=== PATIENT | male | born 1975 | race Caucasian/White ===

== ENCOUNTER 2020-11-03 16:57 | Outpatient (REF) | payer OTHER, SELFPAY ==
--- NOTE | 2020-11-03 17:18 | XR_ITS ---
EXAMINATION: XR CHEST CLINICAL INFORMATION: Pleural effusion COMPARISON: None TECHNIQUE: 2 views of the chest were obtained. FINDINGS: The cardiomediastinal silhouette is normal. There is a moderate-sized loculated right pleural effusion. There is adjacent right basilar atelectasis. There are no focal areas of consolidation in the left lung. XR/XR chest 2V IMPRESSION: Moderate loculated right pleural effusion.
[2020-11-03 17:59] LABS: MANUAL DIFF FLAG NO
[2020-11-03 18:01] LABS: Basophils Absolute Auto 0.1 X10*3/uL (0.0-0.2); Basophils Percent Auto 0.3 % (0-2); Eosinophils Percent Auto 0.1 % (0-4); Hematocrit 37.8 % (42-52); Hemoglobin 11.9 g/dl (14.0-18.0); Imm Gran Abs Auto 0.07 X10*3/uL (0.00-0.03); Imm Gran Pct Auto 0.4 % (0.0-0.4); Lymphocytes Absolute Auto 1.9 X10*3/uL (1.2-4.9); Lymphocytes Percent Auto 11.6 % (20-40); Mean Corpuscular HGB Conc 31.5 g/dl (31.0-36.0); Mean Corpuscular Hemoglobin 27.7 pg (27.0-33.0); Mean Corpuscular Volume 88.1 fL (80-98); Mean Platelet Volume 10.4 fL (9.4-12.4); Monocytes Absolute Auto 1.2 X10*3/uL (0.1-1.2); Monocytes Percent Auto 7.4 % (2-11); Neutrophils Absolute Auto 13.2 X10*3/uL (2.0-8.3); Neutrophils Percent Auto 80.2 % (45-73); Platelet Count 464 X10*3/uL (160-400); Red Blood Count 4.29 X10*6/uL (4.60-5.80); Red Cell Distribution Width 13.7 % (11.0-16.0); White Blood Count 16.4 X10*3/uL (4.8-10.8)
== END 2020-11-03 16:58 | disposition home or self-care (01) ==
LOC: HO.LAB 16:57
PROVIDERS: PCP Internal Medicine; Visit Provider Internal Medicine
DX: J90 Pleural effusion, not elsewhere classified (principal); J18.9 Pneumonia, unspecified organism; F11.10 Opioid abuse, uncomplicated
CPT/HCPCS: 36415; 71046; 85025

== ENCOUNTER 2020-11-09 13:56 | Emergency (ER) | payer OTHER, SELFPAY ==
[2020-11-09 15:06] VITALS: BP 135/80; PULSE 80; RESP 16; TEMP 36.6; O2SAT 100; BMI 23.9
--- NOTE | 2020-11-09 15:07 | XR_ITS ---
EXAMINATION: XR CHEST CLINICAL INFORMATION: History of pleural effusion. COMPARISON: None TECHNIQUE: 2 views of the chest were obtained. FINDINGS: The lungs are expanded with hyperlucent appearing left lower lobe. There is a loculated right pleural effusion extending into inferior right major fissure. There is right basilar atelectasis. The right upper lung is clear. The heart size and pulmonary vascularity is normal. No gross bony abnormality seen. XR/XR chest 2V IMPRESSION: Loculated right pleural effusion extending into the right major fissure. There is right basilar atelectasis
--- NOTE | 2020-11-09 15:08 | ED_ITS ---
HPI - General Adult General Chief complaint: General Medical Stated complaint: fluid in lungs Time Seen by Provider: 11/09/20 15:04 Related Data Home Medications Medication Instructions Recorded Confirmed No Known Home Meds 11/03/20 11/03/20 Previous Rx's Medication Instructions Recorded azithromycin 500 mg tablet 500 mg PO DAILY 7 Days #7 tab 11/03/20 levofloxacin 750 mg tablet 750 mg PO DAILY 7 Days #7 tab 11/03/20 Allergies Allergy/AdvReac Type Severity Reaction Status Date / Time No Known Allergies Allergy Verified 11/03/20 16:41 [facility] Past Medical History Medical History (Updated 11/03/20 @ 18:12 by Damaris Padron MD) Heroin use Pleural effusion, right Pneumonia Social History Social History (Updated 11/03/20 @ 18:07 by Damaris Padron MD) Smoking Status: Current every day smoker Tobacco Type: Cigarette Cigarettes Per Day: 3 Course Course Course Narrative: 1505-This is rapid medical exam. 45 yo male with past medical history of IVDA on methadone currently, recent admit to [facility] for loculated pleural effusion but left AMA. Recommeded he have a thoracentesis but refused. On levaquin currently. Seen by PCP and per patient referred for evaluation and possible thoracentesis. Patient tells me he feels like his symptoms are improving. Will check labs including blood cultures, lactic acid and CXR. Deferred additional HPI, PE, ROS and evaluation to primary provider. Discharge Plan Discharge Prescriptions: No Action No Known Home Meds RF: 0 levofloxacin 750 mg tablet 750 mg PO DAILY 7 Days Qty: 7 RF: 0 azithromycin 500 mg tablet 500 mg PO DAILY 7 Days Qty: 7 RF: 0
[2020-11-09 20:33] LABS: Basophils Absolute Auto 0.1 X10*3/uL (0.0-0.2); Basophils Percent Auto 0.6 % (0-2); Eosinophils Absolute Auto 0.1 X10*3/uL (0.0-0.4); Eosinophils Percent Auto 1.4 % (0-4); Hematocrit 36.2 % (42-52); Hemoglobin 11.3 g/dl (14.0-18.0); Imm Gran Abs Auto 0.04 X10*3/uL (0.00-0.03); Imm Gran Pct Auto 0.4 % (0.0-0.4); Lymphocytes Absolute Auto 2.1 X10*3/uL (1.2-4.9); Lymphocytes Percent Auto 21.5 % (20-40); Mean Corpuscular HGB Conc 31.2 g/dl (31.0-36.0); Mean Corpuscular Volume 89.6 fL (80-98); Monocytes Absolute Auto 0.7 X10*3/uL (0.1-1.2); Monocytes Percent Auto 6.7 % (2-11); Neutrophils Absolute Auto 6.9 X10*3/uL (2.0-8.3); Neutrophils Percent Auto 69.4 % (45-73); Platelet Count 382 X10*3/uL (160-400); Red Blood Count 4.04 X10*6/uL (4.60-5.80); Red Cell Distribution Width 13.9 % (11.0-16.0); White Blood Count 9.9 X10*3/uL (4.8-10.8)
[2020-11-09 20:36] LABS: MANUAL DIFF FLAG NO
--- NOTE | 2020-11-09 21:03 | PC.NURSE ---
CALLED PATIENT LWT 2100.
[2020-11-09 21:08] LABS: Anion Gap 12 (12-20); Blood Urea Nitrogen 11 mg/dL (9-16); Calcium 8.2 mg/dL (8.4-10.2); Carbon Dioxide 34 mmol/L (22-29); Chloride 98 mmol/L (96-108); Creatinine Clr Calc Pharmacy 110.8; Estimated Glomerular Filt Rate > 60; Glucose Random 87 mg/dL (60-115); Potassium 4.7 mmol/l (3.3-5.1); Sodium 139 mmol/L (135-145)
== END 2020-11-09 21:08 | disposition left against medical advice (07) ==
PROVIDERS: Nurse Practitioner Family; Emergency Provider Emergency Medicine; PCP Internal Medicine
DX: J90 Pleural effusion, not elsewhere classified (principal); F11.20 Opioid dependence, uncomplicated; F17.210 Nicotine dependence, cigarettes, uncomplicated
CPT/HCPCS: 36415; 71046; 80048; 83605; 85025; 99282; 99283

== ENCOUNTER 2022-03-10 15:28 | Outpatient (REF) | payer OTHER, SELFPAY ==
--- NOTE | ~2022-03-10 | XR_ITS ---
EXAMINATION: XR CHEST CLINICAL INFORMATION: Right lateral chest pain COMPARISON: Previous chest x-ray November 2020 TECHNIQUE: 2 views of the chest were obtained. FINDINGS: The cardiac and mediastinal contours are stable. The lungs are clear. There is no pleural effusion or pneumothorax. The previously identified loculated right pleural effusion November 2020 is no longer seen. Bony structures are unremarkable. XR/XR chest 2V IMPRESSION: No evidence for acute disease in the chest.
== END 2022-03-10 15:29 | disposition home or self-care (01) ==
LOC: HO.XRAY 15:28
PROVIDERS: PCP Internal Medicine; Visit Provider Nurse Practitioner Family
DX: R07.81 Pleurodynia (principal)
CPT/HCPCS: 71046

== ENCOUNTER 2022-10-05 08:58 | Outpatient (REF) | payer OTHER, SELFPAY ==
--- NOTE | ~2022-10-05 | XR_ITS ---
EXAMINATION: XR CHEST CLINICAL INFORMATION: Chest pain COMPARISON: 03/10/2022 TECHNIQUE: 2 views of the chest were obtained. FINDINGS: Lungs are well-inflated and clear. Trachea is midline in position. No interstitial disease, consolidation or mass. No pleural effusion or pneumothorax. Cardiac silhouette and pulmonary vessels are normal in size. The mediastinum and kate have normal contour. Mild spondylosis of the thoracic spine. Otherwise, the visualized bones, and upper abdomen, are unremarkable. XR/XR chest 2V IMPRESSION: No acute cardiopulmonary abnormality.
--- NOTE | 2022-10-05 09:11 | ECG_ITS ---
Test Reason : CP Blood Pressure : / mmHG Vent. Rate : 061 BPM Atrial Rate : 061 BPM P-R Int : 168 ms QRS Dur : 092 ms QT Int : 406 ms P-R-T Axes : 061 034 048 degrees QTc Int : 408 ms Normal sinus rhythm Low voltage QRS Normal ECG No previous ECGs available Referred By: Damaris Padron Electronically Signed By:GERARDO GARCIA MD
== END 2022-10-05 08:59 | disposition home or self-care (01) ==
LOC: HO.XRAY 08:58
PROVIDERS: PCP Internal Medicine; Visit Provider Internal Medicine
DX: R07.9 Chest pain, unspecified (principal)
CPT/HCPCS: 71046; 93005

== ENCOUNTER 2023-03-31 14:50 | Outpatient (REF) | payer OTHER, SELFPAY ==
--- NOTE | ~2023-03-31 | CT_ITS ---
EXAMINATION: LUNG CANCER SCREENING CT CHEST WITHOUT CONTRAST CLINICAL INFORMATION: Current smoker with 37 pack year history COMPARISON: None TECHNIQUE: Multidetector volumetric CT imaging of the chest was obtained noncontrast using low dose screening CT technique. Axial thin section 0.625 mm reformations in soft tissue and lung windows were obtained. Sagittal and coronal reformations were obtained. Axial MIP images were also created and reviewed. This CT examination was performed using dose optimization techniques as appropriate, variously including the following: *Automated exposure control *Adjustment of mA and/or kV according to patient size (this includes techniques or standardized protocols for targeted exams where dose is matched to indication/reason for exam; i.e. extremities or head) *Use of iterative reconstruction technique TOTAL EXAM DLP: 58 mGy-cm FINDINGS: PULMONARY NODULES (see myers images): No suspicious pulmonary nodules. There is a 3 mm solid noncalcified nodule in the right upper lobe and a 4 mm solid noncalcified nodule in the right lower lobe. There is a punctate nodule in the left upper lobe. LUNGS / PLEURA: Minimal emphysema. There is fibronodular pleural-parenchymal scarring in the right lower lobe with the nodular component measuring up to 1.7 x 1.2 cm, however this is seen in the setting of surrounding bandlike opacities, and additional areas of scarring near the major fissure in this region. No pleural effusion or pneumothorax. MEDIASTINUM / OZ: Heart normal in size without pericardial effusion. Great vessels normal caliber. No lymphadenopathy. Coronary calcifications present. Imaged thyroid gland unremarkable. CHEST WALL / AXILLA: Unremarkable. UPPER ABDOMEN: Supple cyst in the right kidney is benign. No follow-up imaging recommended. OSSEOUS STRUCTURES: No acute or suspicious osseous abnormalities. CT/CT lung screening IMPRESSION: * No evidence of pulmonary malignancy. * There is what most likely represents pleuroparenchymal scarring/round atelectasis in the right lower lobe. Even though there is a nodular component measuring up to 1.5 cm in mean transaxial diameter, this is seen in the context of additional surrounding areas of pleural-parenchymal scarring in this region. As such, I would consider this finding probably benign though it technically does not fall into a specific lung RADS category for reasons discussed above. As such, I feel that it would be appropriate for either a short interval follow-up CT exam in 6 months, or if there is stronger clinical concern, a PET/CT could be performed before then. ASSESSMENT: Lung RADS category: 3. Probably benign. Probably benign findings, including nodules with a low likelihood of becoming a clinically active cancer. Recommend 6 month followup low-dose CT scan. Probability of malignancy 1 to 2%. RECOMMENDATION: Follow up low dose CT chest in 6 months, or PET/CT..
== END 2023-03-31 14:51 | disposition home or self-care (01) ==
LOC: HO.CT 14:50
PROVIDERS: PCP Internal Medicine; Visit Provider Physician Assistant Medical
DX: Z12.2 Encounter for screening for malignant neoplasm of respiratory organs (principal); F17.210 Nicotine dependence, cigarettes, uncomplicated
CPT/HCPCS: 71271; G0296

== ENCOUNTER → 2023-05-03 09:36 | Outpatient (BNVA) | payer OTHER, SELFPAY | PROVIDERS: PCP Internal Medicine; Visit Provider Internal Medicine Pulmonary Disease | DX: R06.09 Other forms of dyspnea (principal); G47.33 Obstructive sleep apnea (adult) (pediatric) | CPT/HCPCS: 99202 ==

== ENCOUNTER 2023-05-05 14:36 | Outpatient (REF) | payer OTHER, SELFPAY | END 2023-05-05 14:37 | disposition home or self-care (01) | LOC: HO.RESP 14:36 | PROVIDERS: PCP Internal Medicine; Visit Provider Internal Medicine Pulmonary Disease | DX: R06.09 Other forms of dyspnea (principal) | CPT/HCPCS: 94060; 94727; 94729 ==

== ENCOUNTER 2023-07-12 16:14 | Outpatient (REF) | payer OTHER, SELFPAY ==
[2023-07-12 18:50] LABS: Alanine Aminotransferase 56 U/L (0-40); Albumin Level 3.9 g/dL (3.5-5.0); Alkaline Phosphatase 52 U/L (39-117); Anion Gap 12 (12-20); Aspartate Amino Transferase 40 U/L (5-37); Bilirubin Total 0.2 mg/dL (0.0-1.0); Blood Urea Nitrogen 11 mg/dL (9-16); Calcium 9.2 mg/dL (8.4-10.2); Carbon Dioxide 29 mmol/L (22-29); Chloride 101 mmol/L (96-108); Cholesterol 139 mg/dL (<200); Estimated Glomerular Filt Rate > 60; Glucose Fasting 104 mg/dL (60-99); HDL Cholesterol 41 mg/dL (>40); LDL Cholesterol Calculated 74 mg/dL (<100); Potassium 3.8 mmol/L (3.3-5.1); Sodium 138 mmol/L (135-145); Total Protein 7.6 g/dL (6.5-8.0); Triglycerides 121 mg/dL (<150)
[2023-07-12 19:07] LABS: PSA,Total (Free>4and<10) 0.48 ng/mL (0.00-4.00)
== END 2023-07-12 16:15 | disposition home or self-care (01) ==
LOC: HO.LAB 16:14
PROVIDERS: PCP Internal Medicine; Visit Provider Internal Medicine
DX: Z00.00 Encounter for general adult medical examination without abnormal findings (principal); Z12.5 Encounter for screening for malignant neoplasm of prostate; E78.5 Hyperlipidemia, unspecified
CPT/HCPCS: 36415; 80053; 80061; 84153

== ENCOUNTER → 2023-07-13 13:31 | Outpatient (REF) | payer OTHER, SELFPAY | LOC: HO.SL 13:31 | PROVIDERS: PCP Internal Medicine; Visit Provider Internal Medicine Pulmonary Disease | DX: G47.33 Obstructive sleep apnea (adult) (pediatric) (principal) | CPT/HCPCS: 95806 ==

== ENCOUNTER → 2023-07-13 15:04 | Outpatient (BNV) | payer OTHER, SELFPAY | PROVIDERS: PCP Internal Medicine; Visit Provider Internal Medicine | DX: G47.33 Obstructive sleep apnea (adult) (pediatric) (principal) | CPT/HCPCS: 95806 ==

== ENCOUNTER 2023-08-01 13:32 | Outpatient (AMB) | payer OTHER, SELFPAY ==
[2023-08-01 13:37] VITALS: BP 128/70; PULSE 73; O2SAT 97; BMI 30.7
--- NOTE | 2023-08-01 13:37 | A.OFFVIS_ITS ---
Intake Vital Signs 08/01/23 13:37 Height 5 ft 8 in Weight 202 lb BMI 30.7 BP 128/70 Blood Pressure Location Lt brachial Position Sitting Pulse 73 Pulse Source Pulse Oximeter Pulse Oximetry (%) 97 Oxygen Delivery Method Room Air Intake Visit Reasons: Dyspnea Electro Plater Required: No Allergies No Known Allergies Allergy (Verified 08/01/23 13:39) HPI Dyspnea HPI Details 48-year-old gentleman active 30 pack-yea r smoker now followed for pulmonary emphysema and obstructive sleep apnea. After the last office visit he was started on Stiolto and albuterol MDI, however he has not received Stiolto. His been relying on albuterol MDI with some improvement, but not complete control of his symptoms. He also has completed his sleep study that showed respiratory event index and he chest received his CPAP machine. He denies any recent exacerbations. [facility] Medical History (Updated 08/01/23 @ 14:02 by Guillermo Watson MD) Nicotine dependence, cigarettes, uncomplicated Pleural effusion, right (~10/2020) Heroin use Surgical History No pertinent past surgical history Family History Mother No problems noted. Father Diabetes Social History (Updated 03/31/23 @ 14:52 by Corrina Gutiérrez PA-C) Housing: Apartment Alcohol intake: former Patient Tobacco Use Status: Current everyday Tobacco user Tobacco use type: Cigarette Cigarettes Per Day: 10 Years Smoked: onset 11yo, 1ppd x 37yrs, now 1/2ppd - 35pyh e-Cigarette/Vaping Use: Never Used Second Hand Smoke Exposure: No service: No Current occupational status: unemployed Cognitive needs: No Hearing needs: No Vision needs: Yes Review of Systems Const Denies daytime sleepiness, Denies excessive sweating, Denies fatigue, Denies fever(s), Denies lethargy, Denies malaise, Denies night sweats, Denies snoring and Denies weight loss Eyes Denies blurry vision and Denies itchy eyes ENT Denies nasal congestion, Denies post nasal drip, Denies sinus pain, Denies sinus pressure and Denies other ( Thrush) Card Denies chest pain, Denies pedal edema, Denies dyspnea, Denies orthopnea and Justo es paroxysmal nocturnal dyspnea Resp Denies cough, Denies hemoptysis, Denies excessive phlegm production, Denies dyspnea, Denies snoring and Denies wheezing GI Denies abdominal pain and Denies heartburn Musc Denies myalgias, Denies arthralgias and Denies joint swelling Skin/Breast Denies rash Neuro Denies memory loss and Denies seizure-like activity Psych Denies abnormal sleep pattern, Denies anxiety and Denies memory loss Endo Denies excessive sweating, Denies fatigue and Denies heat intolerance Lake/Lymph Denies easy bruising Aller/Immun Denies itchy eyes, Denies seasonal rhinorrhea and Denies wheezing Physical Exam Vital Signs: Last Vital Signs Pulse 73 08/01/23 13:37 BP 128/70 08/01/23 13:37 Pulse Ox 97 08/01/23 13:37 Oxygen Delivery Method Room Air 08/01/23 13:37 BMI result Body Mass Index 30.7 Const General: no acute distress and alert Nutritional Appearance: not obese Orientation/consciousness: Other orientation findings ( oriented) HEENT Head: Yes atraumatic Eyes General: appearance normal, both eyes and all related structures Sclerae: sclerae normal EOM: EOMs intact bilaterally Neck Neck: Yes supple Lymphatic: no lymphadenopathy noted Resp Effort & Inspection: normal respiratory effort and no use of accessory muscles Auscultation: clear to auscultation bilaterally Cardio Rate: regular rate Rhythm: regular rhythm Heart sounds: no gallops, no murmurs and no rubs Skin General skin exam: other ( warm) Extrem General: No clubbing, No cyanosis and No edema Assessment & Plan Assessment & Plan (1) ROBERT (obstructive sleep apnea): Code(s): G47.33 - Obstructive sleep apnea (adult) (pediatric) Plan: Patient just received his CPAP machine. Expect to improve on CPAP therapy. (2) Pulmonary emphysema: Code(s): J43.9 - Emphysema, unspecified Plan: Suboptimally controlled on albuterol MDI. Stiolto reordered. Medications: Refilled tiotropium-olodaterol 2.5-2.5 mcg/actuation (Stiolto Respimat) 2 puffs inhalation DAILY 4 grams 6RF 30 days J43.9 - Emphysema, unspecified Coding Level of Care Code Est Pt Level 4 (20262) Diagnoses ROBERT (obstructive sleep apnea) G47.33 Pulmonary emphysema J43.9
== END 2023-08-01 13:52 | disposition home or self-care (01) ==
PROVIDERS: PCP Internal Medicine; Visit Provider Internal Medicine Pulmonary Disease
DX: G47.33 Obstructive sleep apnea (adult) (pediatric) (principal); J43.9 Emphysema, unspecified
CPT/HCPCS: 99214

== ENCOUNTER → 2023-08-01 13:32 | Outpatient (BNVA) | payer OTHER, SELFPAY | PROVIDERS: PCP Internal Medicine; Visit Provider Internal Medicine Pulmonary Disease | DX: J43.9 Emphysema, unspecified (principal); R06.00 Dyspnea, unspecified; G47.33 Obstructive sleep apnea (adult) (pediatric); R91.1 Solitary pulmonary nodule; F11.20 Opioid dependence, uncomplicated; F17.210 Nicotine dependence, cigarettes, uncomplicated | CPT/HCPCS: 99212 ==

== ENCOUNTER → 2023-08-10 15:26 | Outpatient (REF) | payer OTHER, SELFPAY ==
--- NOTE | ~2023-08-10 | CT_ITS ---
EXAMINATION: CT CHEST LOW-DOSE SCREENING WITHOUT CONTRAST HISTORY: Asymptomatic patient meeting criteria for lung screening. PATIENT PACK-YEAR HISTORY: 33 Current Smoker: Yes If former smoker, years since quitting: COMPARISON: 03/31/2023 TECHNIQUE: Multidetector volumetric non-contrast CT imaging of the chest was performed using low dose screening CT technique. Axial thin section 0.625 mm reformations in soft tissue and lung windows were obtained. Sagittal and coronal reformations were obtained. Axial MIP images were also created and reviewed. RECONSTRUCTED WIDTH: 1.25 mm x 1.25 mm TOTAL EXAM DLP: 59 mGy-cm CTDIvol: 1.43 L mGy FINDINGS: LUNGS: Mild centrilobular emphysema. No suspicious pulmonary nodule. No significant interval change in configuration of pleural parenchymal scarring in the right lower lobe. Central airways are patent. PLEURA: No pleural effusion. LYMPH NODES: No bulky mediastinal, hilar or axillary lymphadenopathy. MEDIASTINUM: Great vessels are of normal caliber. Heart size is normal. No pericardial effusion. CORONARY ARTERY CALCIFICATIONS: Mild. CHEST WALL/BREASTS: Gynecomastia. UPPER ABDOMEN: This study was performed without contrast and with lower than standard dose, reducing the sensitivity for detection of small lesions in the upper abdomen. OSSEOUS STRUCTURES: No destructive bone lesions. CT/CT lung screen follow up IMPRESSION: No suspicious pulmonary nodule. LUNG-RADS CATEGORY ASSESSMENT: 2. Benign appearance or behavior. Nodules with a very low likelihood of becoming a clinically active cancer due to size or lack of growth. Continue annual screening with low-dose CT in 12 months. Probability of malignancy less than 1%. INCIDENTAL FINDINGS (S CATEGORY): Finding: No incidental findings. Significance category: Normal or normal variant. RECOMMENDATION: Low dose lung CT. overall in 1 year. Visual estimate of coronary calcified plaque burden: Mild. However, this exam cannot replace a dedicated cardiac CT calcium score for accurate assessment. LUNG-RADS CATEGORY: 2 -- BENIGN
== END ==
LOC: HO.CARD 15:26
PROVIDERS: PCP Internal Medicine; Visit Provider Internal Medicine Pulmonary Disease
DX: R06.09 Other forms of dyspnea (principal); R91.1 Solitary pulmonary nodule; F17.210 Nicotine dependence, cigarettes, uncomplicated
CPT/HCPCS: 71250

== ENCOUNTER 2023-09-12 14:18 | Outpatient (AMB) | payer OTHER, SELFPAY ==
--- NOTE | 2023-09-12 14:23 | MHC.PC.OV ---
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 Home Health Aide Caregiver Required: No Anesthesiology Medical Doctor: Not Required per policy Accompanied by: Self / Same As Patient Allergies No Known Allergies Allergy (Verified 09/12/23 14:40) Medication List - Last Reconciled 09/12/23 by KIRA Guillaume albuterol sulfate 90 mcg/actuation 2 puffs inhalation Q4-6H PRN 30 days sildenafil 50 mg PO DAILY PRN 3 days tiotropium-olodaterol 2.5-2.5 mcg/actuation (Stiolto Respimat) 2 puffs inhalation DAILY 30 days trazodone 50 mg PO BEDTIME PRN 90 days Tobacco use date assessed: 09/12/23 Dental Screening Dental Screen Date: 09/12/23 Did you have a dental visit in the last 12 months?: No Did you have a dental problem in the last 6 months where you did not have access to dental care?: No Was dental information given to patient?: Patient has dentist HPI Urology Referral-Prostate Check-up HPI Details Patient is a 48-year-old male who presents today requesting referral to see Urology for prostate check and erectile dysfunction. Reports buying viagra himself. PSA 0.48 07/2023. In addition, he reports being diagnosed with glaucoma in the past and he missed eye doctor appointment, will follow-up on ophthalmology referral. [facility] Medical History Nicotine dependence, cigarettes, uncomplicated Pleural effusion, right (~10/2020) Heroin use Surgical History No pertinent past surgical history Family History Mother No problems noted. Father Diabetes Social History Housing: Apartment Alcohol intake: former Patient Tobacco Use Status: Current everyday Tobacco user Tobacco use type: Cigarette Cigarette Packs Per Day: 0.5 Cigarettes Per Day: 7 Years Smoked: onset 11yo, 1ppd x 35yrs, now 1/2ppd - 35pyh Packs Per Year: 0 Packs per year/per ci.00 e-Cigarette/Vaping Use: Never Used Second Hand Smoke Exposure: No service: No Current occupational status: unemployed Cognitive needs: No Hearing needs: No Vision needs: Yes Questionnaire Thrive Questionnaire Date Thrive assessed: 02/16/23 SAADIA-7 AMB Questionnaire SAADIA-7 Date SAADIA - 7 assessed: 02/16/23 Source: Developed by Drs. Sal Mccormack, Kori Alexander, Easton Marcum and colleagues, with an educational alexi from [employer]. Review of Systems Const Denies body aches, Denies chills, Denies fever(s) and Denies headache(s) Eyes Reports as per HPI ENT Denies dizziness, Denies otalgia, Denies headache(s), Denies nasal discharge, Denies sinus pain and Denies sore throat Card Denies chest pain, Denies lightheadedness and Denies dyspnea Resp Denies cough, Denies dyspnea and Denies wheezing GI Denies abdominal pain Reports as per HPI, Denies hematuria, Denies difficulty urinating, Reports erectile dysfunction and Denies dysuria Musc Denies myalgias Skin/Breast Denies rash Neuro Denies dizziness and Denies headache(s) Aller/Immun Denies wheezing Physical exam (Primary Care) Vital Signs: Last Vital Signs Pulse 71 09/12/23 14:27 BP 128/74 09/12/23 14:27 Pulse Ox 96 09/12/23 14:27 Oxygen Delivery Method Room Air 09/12/23 14:27 BMI result Body Mass Index 33.4 Tobacco/Smoking Status: Tobacco use Status Tobacco use date assessed 09/12/23 09/12/23 14:34 Patient Tobacco Use Status Current everyday Tobacco 09/12/23 14:33 Tobacco use type Cigarette 09/12/23 14:33 e-Cigarette/Vaping Use Never Used 09/12/23 14:33 Thrive Assessment: Date of Thrive Assessment Date Thrive assessed 02/16/23 09/12/23 14:24 Const General: cooperative and no acute distress Orientation/consciousness: patient oriented x3 HENMT Head: Yes normocephalic and Yes atraumatic Throat: Yes posterior oropharynx normal Eyes General: appearance normal, both eyes and all related structures Neck Neck: Yes normal visual inspection and Yes full ROM Resp Effort & Inspection: normal respiratory effort and able to speak in complete sentences Auscultation: clear to auscultation bilaterally, no crackles, no rales, no rhonchi and no wheezes Cardio Rate: regular rate Rhythm: regular rhythm Heart sounds: S1 normal heart sound present and S2 normal heart sound present GI Auscultation: normal bowel sounds Skin General skin exam: no rashes or lesions noted Neuro General: patient oriented x3 Gait exam (Neuro): Normal gait present Extrem General: Yes full ROM and No edema Assessment and Plan Assessment & Plan (1) Erectile dysfunction: Code(s): N52.9 - Male erectile dysfunction, unspecified Plan: Urology referral Patient also wants his prostate to be checked Recent PSA normal Denies any urinary symptoms Plan Keep appointment with PCP as scheduled or follow-up sooner as needed Orders: Referrals Urology Referral N52.9 - Male erectile dysfunction, unspecified Coding Level of Care Code Est Pt Level 3 (76606) Diagnoses Erectile dysfunction N52.9
[2023-09-12 14:27] VITALS: BP 128/74; PULSE 71; O2SAT 96; BMI 33.4
== END 2023-09-12 16:05 | disposition home or self-care (01) ==
PROVIDERS: PCP Internal Medicine; Visit Provider Nurse Practitioner Family
DX: N52.9 Male erectile dysfunction, unspecified (principal); F17.210 Nicotine dependence, cigarettes, uncomplicated
CPT/HCPCS: 99213

== ENCOUNTER 2023-09-30 11:37 | Emergency (ER) | payer OTHER, SELFPAY ==
--- NOTE | ~2023-09-30 | CT_ITS ---
EXAMINATION: CT ANGIOGRAM OF THE CHEST WITH AND WITHOUT CONTRAST (CT PULMONARY ANGIOGRAM FOR PE) CLINICAL INFORMATION: Reason for Exam tachycardia, dyspnea COMPARISON: None available. TECHNIQUE: Prior to contrast administration, noncontrast localization images were obtained. Subsequently, multidetector volumetric imaging was performed from the thoracic inlet to below the diaphragms following the administration of 80 mL Omnipaque 350 intravenous contrast. No contrast reaction reported Sagittal, coronal, and MIP oblique sagittal reformatted images were obtained on the CT workstation, uploaded to PACS, and reviewed. This CT examination was performed using dose optimization techniques as appropriate, variously including the following: *Automated exposure control *Adjustment of mA and/or kV according to patient size (this includes techniques or standardized protocols for targeted exams where dose is matched to indication/reason for exam; i.e. extremities or head) *Use of iterative reconstruction technique Total exam dose-length product 389 mGy-cm FINDINGS: QUALITY OF STUDY/CONTRAST BOLUS: Satisfactory. PULMONARY ARTERIES: No pulmonary emboli. THORACIC AORTA: No aneurysm. LUNG: The lungs are expanded with bandlike atelectasis right lower lobe and platelike atelectasis in the lingula. No consolidation, mass or pulmonary nodules visualized. PLEURA: No pleural effusion or pneumothorax. MEDIASTINUM: Normal heart size. No pericardial effusion. No hilar or mediastinal lymphadenopathy. No evidence of septal bowing or right heart strain. CORONARY ARTERY CALCIFICATION: None visualized on this study. CHEST WALL/AXILLA: No axillary or internal mammary lymphadenopathy. OSSEOUS STRUCTURES: No acute or suspicious osseous abnormality. UPPER ABDOMEN: Unremarkable. No reflux of contrast into the hepatic veins to suggest elevated right heart pressures. CT/CT angio chest PE protocol IMPRESSION: No evidence of PE. No evidence of aortic dissection or aneurysm. Atelectatic changes right lower lobe and lingula. VTE: negative
[2023-09-30 12:13] VITALS: BP 136/94; PULSE 125; RESP 18; TEMP 37.2; O2SAT 95; BMI 33.4
--- NOTE | 2023-09-30 12:13 | ED_ITS ---
HPI - General Adult General Chief complaint: Dyspnea Stated complaint: diff breathing Time Seen by Provider: 09/30/23 13:06 Source: patient, family and old records reviewed Mode of arrival: ambulatory Limitations: no limitations History of Present Illness HPI narrative: 48 yo male with PMH of depression, emphysema, ROBERT, opiate dependence only snorts has not injected in 2 years, pleural effusion R side 2020 here with c/o 5 days of cough, chills, sweats, short of breath, pleuritic chest and back pain. He has no sick contacts. MD complaint: URI symptoms, chest and back pain Onset (ago): day(s) (5) Location: chest and back Radiation: non-radiation Severity: severe Quality: stabbing Pain Consistency: intermittent Relieving factors: none Exacerbating factors: movement and other (inspiration) Associated symptoms: cough, fever/chills, loss of appetite and weakness Treatments prior to arrival: none Related Data Previous Rx's Medication Instructions Recorded albuterol sulfate 90 mcg/actuation 2 puff inhalation Q4-6H PRN 05/03/23 aerosol inhaler shortness of breath or wheezing 30 days #1 ea trazodone 50 mg tablet 50 mg PO BEDTIME PRN sleep 90 days 07/18/23 #90 tabs tiotropium 2.5 mcg-olodaterol 2.5 2 puff inhalation DAILY 30 days #4 08/01/23 mcg/actuation mist for inhalation grams (Stiolto Respimat) sildenafil 50 mg tablet 50 mg PO DAILY PRN sexual activity 08/02/23 3 days #3 tabs cephalexin 500 mg capsule 500 mg PO QID 7 days #28 caps 09/30/23 doxycycline hyclate 100 mg capsule 100 mg PO BID 7 days #14 caps 09/30/23 Allergies Allergy/AdvReac Type Severity Reaction Status Date / Time No Known Allergies Allergy Verified 09/30/23 12:16 Review of Systems 2 Review of Systems: Constitutional : No Weight loss, pos Fever, pos Chills ENT/Mouth : No sore throat, No Rhinorrhea Eyes: No Eye Pain, No Swelling Cardiovascular : pos Chest Pain, pos SOB, no Dyspnea on Exertion, No Orthopnea, No Edema, No Palpitations Respiratory : pos Cough, No Sputum Gastrointestinal : pos Nausea, No Vomiting, No Diarrhea, No abdominal Pain, No Hematochezia, No Melena Genitourinary : No Dysuria, No Urinary Frequency Musculoskeletal : No joint pain, pos Myalgias, No Joint Swelling Skin : No Skin Lesions, No rash Neuro : pos Weakness, No Numbness, No Dizziness, No Headache Psych : No Anxiety/Panic, No Depression Heme/Lymph: No Bruising, No Lymphadenopathy Endocrine : No Polyuria, No Polydipsia All other systems reviewed and are negative PMFSH Past Medical History Attestation statement: The following information was validated with the patient. Source: old records reviewed Medical History Nicotine dependence, cigarettes, uncomplicated Pleural effusion, right (~10/2020) Heroin use Surgical History No pertinent past surgical history Family History Family History Mother No problems noted. Father Diabetes Social History Housing: Apartment Alcohol intake: former Patient Tobacco Use Status: Current everyday Tobacco user Tobacco use type: Cigarette Cigarette Packs Per Day: 0.5 Cigarettes Per Day: 7 Years Smoked: onset 11yo, 1ppd x 37yrs, now 1/2ppd - 35pyh e-Cigarette/Vaping Use: Never Used Second Hand Smoke Exposure: No Advance Directives: No Advance Directives Information Provided: No service: No Current occupational status: unemployed Cognitive needs: No Hearing needs: No Vision needs: Yes Physical Exam ED Vital Signs: Vital Signs - 24 hr 09/30/23 12:13 09/30/23 13:15 Temperature 99 F Pulse Rate 125 H 117 H Respiratory Rate 18 17 Blood Pressure 136/94 H Pulse Oximetry 95 94 Oxygen Delivery Method Room Air Room Air BMI result Body Mass Index 33.4 Appearance: Alert. Oriented X3. No acute distress. Eyes: Pupils equal, round and reactive to light. ENT: Pharynx normal. Neck: Normal inspection. Neck supple. CVS: tachycardic heart rate and rhythm. Pulses normal. Respiratory: No respiratory distress. Breath sounds diminished in lower lobes Abdomen: Soft and nontender. Skin: Skin warm and dry. Normal skin color. Normal skin turgor. Extremities: No lower extremity edema. No calf ttp Neuro: Oriented X 3. No motor deficit. No sensory deficit. Course Course Course Narrative: RME:?48 yo male with pmhx of ROBERT (on CPAP), MDD, opioid dependence, presents to the ED today with difficulty breathing x1 year, worsening yesterday. Worse with exertion. No recent illness. No sick contacts. Denies fever, chills, cough, chest pain. SPO2 86% on RA at home. Not on home O2. Smokes 7 cigarettes/ day. Seen at [facility] yesterday for same and LWCT. PE: Lungs CTA b/l. Plan: cxr, serology, EKG, labs Full HPI, ROS and PE to be performed by the primary ED provider. Reevaluation(s) Reevaluation #1: is asking to leave on discharge partner tells me he drained abscess on left buttock area is swollen and red no further purulence or fluctuance but definitely cellulitis likely driving force of illness Medications Administered Discontinued Medications Generic Name Dose Route Start Last Admin Trade Name Freq PRN Reason Stop Dose Admin Ceftriaxone Sodium 2 gm/ 50 mls @ 100 mls/hr 09/30/23 13:36 09/30/23 15:31 Sodium Chloride IV 09/30/23 14:05 100 mls/hr ONCE ONE Administration Iohexol 100 ml 09/30/23 14:39 09/30/23 14:39 Iohexol 350 Mg/Ml 100 Ml Infus..Btl IV 09/30/23 14:40 65 ml ONCE ONE Administration Ketorolac Tromethamine 15 mg 09/30/23 13:21 09/30/23 14:42 Ketorolac Tromethamine 15 Mg/Ml Vial IVPUSH 09/30/23 13:22 15 mg ONCE ONE Administration Oxycodone HCl 15 mg 09/30/23 13:21 09/30/23 14:43 Oxycodone Hcl Immed Release 15 Mg Tablet PO 09/30/23 13:22 15 mg ONCE ONE Administration Medical Decision Making Medical Decision Making MDM Narrative: 48 yo male with PMH of depression, emphysema, ROBERT, opiate dependence with active IVDA, pleural effusion R side 2019 here with c/o URI symptoms now with pleuritic chest and back pain at this time will obtain labs, viral panel, CTA for PE/pneumonia/effusion, could just be MSK or viral in nature, troponin and TSH, tachycardia could be due to cocaine use as well. IV toradol and PO oxycodone for pain. He adamantly denies IVDA unlikely to be endocarditis has not injected in 2 years. Differential Diagnosis Differential Diagnoses: The differential diagnosis associated with the presentation includes effusion, pneumonia, PE Admission/Observation Consideration of admission/observation: Escalation of care including admission/observation considered at discharge showed me L buttock abscess that is drained already but mild cellulitis noted - likely cause of symptoms will DC home oral antibiotics. He does not want to stay Lab Data MDM Lab Attestation statement: I reviewed the patient's lab results. 09/30/23 12:45 09/30/23 12:45 Labs: Lab Results 09/30/23 09/30/23 Range/Units 12:45 14:23 WBC 10.1 (4.8-10.8) X10*3/uL RBC 5.00 (4.60-5.80) X10*6/uL Hgb 14.8 (14.0-18.0) g/dl Hct 43.5 (42.0-52.0) % MCV 87.0 (80.0-98.0) fL MCH 29.6 (27.0-33.0) pg MCHC 34.0 (31.0-36.0) g/dl RDW 13.2 (11.0-16.0) % Plt Count 157 L (160-400) X10*3/uL MPV 10.2 (9.4-12.4) fL Immature Gran % (Auto) 0.2 (0.0-0.4) % Neut % (Auto) 55.5 (45-73) % Lymph % (Auto) 28.0 (20-40) % [place] % (Auto) 10.2 (2-11) % Eos % (Auto) 5.7 H (0-4) % Baso % (Auto) 0.4 (0-2) % Lymph # (Auto) 2.8 (1.2-4.9) X10*3/uL [place] # (Auto) 1.0 (0.1-1.2) X10*3/uL Eos # (Auto) 0.6 H (0.0-0.4) X10*3/uL Baso # (Auto) 0.0 (0.0-0.2) X10*3/uL Abs Immat Gran (auto) 0.02 (0.00-0.03) X10*3/uL Absolute Neuts (auto) 5.6 (2.0-8.3) x10*3/uL Absolute Nucleated RBC 0.000 (0.0-0.012) X10*3/uL Nucleated RBC % (auto) 0.0 (0.0-0.2) /100WBC PT 11.3 (11.1-13.3) SEC INR 0.9 (0.9-1.1) D-Dimer High Sensitivty 310 NG/ML Sodium 140 (135-145) mmol/L Potassium 3.9 (3.3-5.1) mmol/L Chloride 104 (96-108) mmol/L Carbon Dioxide 26 (22-29) mmol/L Anion Gap 14 (12-20) BUN 7 L (9-16) mg/dL Creatinine 0.88 (0.5-1.4) mg/dL Estim Creat Clear Calc 114.9 Estimated GFR > 60 Random Glucose 125 H (60-115) mg/dL Lactic Acid 1.1 (0.5-2.0) mmol/L Calcium 9.4 (8.4-10.2) mg/dL Magnesium 1.8 (1.6-2.6) mg/dL Troponin I High Sens 13.0 (<3.5-35.0) ng/L TSH 0.90 (0.32-4.0) uIU/mL Influenza Type A (PCR) NEGATIVE (Negative) Influenza Type B (PCR) NEGATIVE (Negative) RSV RNA Qual (PCR) NEGATIVE (Negative) SARS-CoV-2 RNA (RT-PCR) NEGATIVE (Negative) Independent Interpretation I performed an independent interpretation of an: EKG, Plain X-Ray and CT Scan (no PE no dissection) Interpretation: Rate: 117 Rhythm: sinus tachycardia [place]: left Normal P waves. Normal EDDIE. Normal QRS complex. ST T wave : no MINAL, normal qTC: normal prior studies: no acute ischemia The study has been interpreted contemporaneously by me. . Radiology Impression Discussion of test interpretation with radiology: I have reviewed the radiologist's reading. Independent Historian Clinical information obtained from an independent historian. History obtained from or confirmed by: Spouse External Record Review External record reviewed: Inpatient record Prescription Management I considered prescription management with: Antibiotic Discharge Plan Discharge Clinical Impression: Cellulitis of buttock, left, Acute viral syndrome Patient Disposition: Home, Self-Care Instructions: Cellulitis (ED), Viral Syndrome (ED) Additional Instructions: return for worsening symptoms, fevers, vomiting, no improvement in rash, increased pain or difficulty breathing, finish all antibiotics On a cephalosporin?antibiotic, softer bowel movements are to be expected. Call your provider if you move your bowels more than 4 times a day, your bowel movements are almost all liquid, or you get a rash.?? On doxycycline, do not take pills immediately before going to bed and swallow pills with plenty of water. Avoid direct sunlight, iron, antacids, and Pepto Bismol. Call your provider if you develop new ringing in your ears, new problems hearing, dizziness, difficulty swallowing, rash, abdominal discomfort, nausea, or diarrhea.? Prescriptions: New doxycycline hyclate 100 mg capsule 100 mg PO BID 7 Days Qty: 14 0RF cephalexin 500 mg capsule 500 mg PO QID 7 Days Qty: 28 0RF No Action trazodone 50 mg tablet 50 mg PO BEDTIME PRN (Reason: sleep) 90 Days Qty: 90 3RF Rx Instructions: Take 1 to 2 tablets as needed. sildenafil 50 mg tablet 50 mg PO DAILY PRN (Reason: sexual activity) 3 Days Qty: 3 0RF Rx Instructions: administer 30 minutes to 4 hours before activity Stiolto Respimat 2.5-2.5 mcg/actuation mist 2 puff inhalation DAILY 30 Days Qty: 4 6RF albuterol sulfate 90 mcg/actuation HFA aerosol inhaler 2 puff inhalation Q4-6H PRN (Reason: shortness of breath or wheezing) 30 Days Qty: 1 6RF
--- NOTE | 2023-09-30 12:19 | ECG_ITS ---
Test Reason : DIFF BREATHING Blood Pressure : / mmHG Vent. Rate : 117 BPM Atrial Rate : 117 BPM P-R Int : 144 ms QRS Dur : 086 ms QT Int : 312 ms P-R-T Axes : 041 -11 032 degrees QTc Int : 435 ms Sinus tachycardia Otherwise normal ECG When compared with ECG of 05-OCT-2022 09:19, Vent. rate has increased BY 56 BPM Referred By: Ellie Callahan Electronically Signed By:GERARDO GARCIA MD
[2023-09-30 12:51] LABS: MANUAL DIFF FLAG NO
[2023-09-30 12:52] LABS: Basophils Percent Auto 0.4 % (0-2); Eosinophils Absolute Auto 0.6 X10*3/uL (0.0-0.4); Eosinophils Percent Auto 5.7 % (0-4); Hematocrit 43.5 % (42.0-52.0); Hemoglobin 14.8 g/dl (14.0-18.0); Imm Gran Abs Auto 0.02 X10*3/uL (0.00-0.03); Imm Gran Pct Auto 0.2 % (0.0-0.4); Lymphocytes Absolute Auto 2.8 X10*3/uL (1.2-4.9); Mean Corpuscular Hemoglobin 29.6 pg (27.0-33.0); Mean Platelet Volume 10.2 fL (9.4-12.4); Monocytes Percent Auto 10.2 % (2-11); Neutrophils Absolute Auto 5.6 x10*3/uL (2.0-8.3); Neutrophils Percent Auto 55.5 % (45-73); Platelet Count 157 X10*3/uL (160-400); Red Cell Distribution Width 13.2 % (11.0-16.0); White Blood Count 10.1 X10*3/uL (4.8-10.8)
[2023-09-30 13:01] LABS: INTERNATIONAL NORM RATIO 0.9 (0.9-1.1); Prothrombin Time 11.3 SEC (11.1-13.3)
[2023-09-30 13:05] LABS: Magnesium 1.8 mg/dL (1.6-2.6)
[2023-09-30 13:15] VITALS: PULSE 117; RESP 17; O2SAT 94
[2023-09-30 13:21] LABS: Anion Gap 14 (12-20)
[2023-09-30 13:23] LABS: Blood Urea Nitrogen 7 mg/dL (9-16); Calcium 9.4 mg/dL (8.4-10.2); Carbon Dioxide 26 mmol/L (22-29); Chloride 104 mmol/L (96-108); Creatinine Clr Calc Pharmacy 114.9; Estimated Glomerular Filt Rate > 60; Glucose Random 125 mg/dL (60-115); Potassium 3.9 mmol/L (3.3-5.1); Sodium 140 mmol/L (135-145)
[2023-09-30 13:41] LABS: D Dimer High Sensitivity 310 NG/ML
[2023-09-30 13:43] LABS: Influenza A PCR NEGATIVE (Negative); Influenza B PCR NEGATIVE (Negative); Resp Syncy Virus RNA Qual PCR NEGATIVE (Negative); SARS COV2 PCR INHOUSE NEGATIVE (Negative)
[2023-09-30] MEDS: iohexoL 350 MG/ML 100 ML INFUS..BTL IV (14:39)
[2023-09-30 14:40] LABS: Lactic Acid 1.1 mmol/L (0.5-2.0)
[2023-09-30] MEDS: Ketorolac Tromethamine 15 MG/ML VIAL IVPUSH (14:42)
[2023-09-30] MEDS: oxyCODONE HCl Immed Release 15 MG TABLET PO (14:43)
[2023-09-30] MEDS: cefTRIAXone sodium 2 GM in 0.9 % Sodium Chloride 50 ML IV (15:31)
--- NOTE | 2023-09-30 15:32 | PC.NURSE ---
patient antibiotics started late due to IV access issues and difficult lab draw, patient medicated per MAR. patient is understanding of the current plan of care.
[2023-09-30 15:47] VITALS: BP 109/77; PULSE 105; RESP 18; TEMP 36.8; O2SAT 95
== END 2023-09-30 16:08 | disposition home or self-care (01) ==
PROVIDERS: Physician Assistant Medical; Emergency Provider Emergency Medicine; PCP Internal Medicine
DX: B34.9 Viral infection, unspecified (principal); R05.9 Cough, unspecified; R50.9 Fever, unspecified; L03.317 Cellulitis of buttock; R00.0 Tachycardia, unspecified; Z20.822 Contact with and (suspected) exposure to COVID-19; Z20.828 Contact with and (suspected) exposure to other viral communicable diseases; F17.210 Nicotine dependence, cigarettes, uncomplicated; F11.20 Opioid dependence, uncomplicated; Z79.899 Other long term (current) drug therapy
CPT/HCPCS: 0241U; 36415; 71275; 80048; 83605; 83735; 84443; 84484; 85025; 85379; 85610; 87040; 93005; 96365; 96375; 99284; J0696; J1885; Q9967

== ENCOUNTER 2023-10-06 15:14 | Outpatient (AMB) | payer OTHER, SELFPAY ==
--- NOTE | 2023-10-06 15:16 | MHC.OFFVIS ---
Intake Intake Visit Reasons: Dyspnea Allergies No Known Allergies Allergy (Verified 09/30/23 12:16) [facility] Medical History Nicotine dependence, cigarettes, uncomplicated Pleural effusion, right (~10/2020) Heroin use Surgical History No pertinent past surgical history Family History Mother No problems noted. 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
--- NOTE | 2023-10-06 15:24 | A.OFFVIS_ITS ---
Intake Vital Signs 10/06/23 15:33 Height 5 ft 8 in Weight 218 lb 4.122 oz BMI 33.2 BP 120/77 Blood Pressure Location Rt brachial Position Sitting Pulse 92 Pulse Source Doppler Pulse Oximetry (%) 97 Oxygen Delivery Method Room Air Intake Visit Reasons: Dyspnea Allergies No Known Allergies Allergy (Verified 10/06/23 15:35) HPI Dyspnea HPI Details 48-year-old gentleman active 30 pack-yea r smoker now followed for pulmonary emphysema and obstructive sleep apnea. He continues on Stiolto and albuterol MDI with good control of his pulmonary symptoms. He does complain of some orthopnea and lower extremity edema. Patient also started on CPAP, however he does have difficulties falling asleep with a machine. [facility] Medical History Nicotine dependence, cigarettes, uncomplicated Pleural effusion, right (~10/2020) Heroin use Surgical History No pertinent past surgical history Family History Mother No problems noted. Father Diabetes Social History Housing: Apartment Alcohol intake: former Patient Tobacco Use Status: Current everyday Tobacco user Tobacco use type: Cigarette Cigarette Packs Per Day: 0.5 Cigarettes Per Day: 7 Years Smoked: onset 11yo, 1ppd x 35yrs, now 1/2ppd - 35pyh e-Cigarette/Vaping Use: Never Used Second Hand Smoke Exposure: No service: No Current occupational status: unemployed Cognitive needs: No Hearing needs: No Vision needs: Yes Review of Systems Const Denies daytime sleepiness, Denies excessive sweating, Denies fatigue, Denies fever(s), Denies lethargy, Denies malaise, Denies night sweats, Denies snoring and Denies weight loss Eyes Denies blurry vision and Denies itchy eyes ENT Denies nasal congestion, Denies post nasal drip, Denies sinus pain, Denies sinus pressure and Denies other ( Thrush) Card Denies chest pain, Reports pedal edema, Denies dyspnea, Reports orthopnea and Denies paroxysmal nocturnal dyspnea Resp Denies cough, Denies hemoptysis, Denies excessive phlegm production, Denies dyspnea, Denies snoring and Denies wheezing GI Denies abdominal pain and Denies heartburn Musc Denies myalgias, Denies arthralgias and Denies joint swelling Skin/Breast Denies rash Neuro Denies memory loss and Denies seizure-like activity Psych Denies abnormal sleep pattern, Denies anxiety and Denies memory loss Endo Denies excessive sweating, Denies fatigue and Denies heat intolerance Lake/Lymph Denies easy bruising Aller/Immun Denies itchy eyes, Denies seasonal rhinorrhea and Denies wheezing Physical Exam Vital Signs: Last Vital Signs Pulse 92 10/06/23 15:33 BP 120/77 10/06/23 15:33 Pulse Ox 97 10/06/23 15:33 Oxygen Delivery Method Room Air 10/06/23 15:33 BMI result Body Mass Index 33.2 Const General: no acute distress and alert Nutritional Appearance: not obese Orientation/consciousness: Other orientation findings ( oriented) HEENT Head: Yes atraumatic Eyes General: appearance normal, both eyes and all related structures Sclerae: sclerae normal EOM: EOMs intact bilaterally Neck Neck: Yes supple Lymphatic: no lymphadenopathy noted Resp Effort & Inspection: normal respiratory effort and no use of accessory muscles Auscultation: clear to auscultation bilaterally Cardio Rate: regular rate Rhythm: regular rhythm Heart sounds: no gallops, no murmurs and no rubs Skin General skin exam: other ( warm) Extrem General: No clubbing, No cyanosis and Yes edema (1+ bilateral) Assessment & Plan Assessment & Plan (1) Pulmonary emphysema: Code(s): J43.9 - Emphysema, unspecified Plan: Symptoms well controlled on Stiolto and albuterol MDI. Continue current regimen. (2) ROBERT (obstructive sleep apnea): Code(s): G47.33 - Obstructive sleep apnea (adult) (pediatric) Plan: Patient has started on CPAP, however his difficulties foreign sleep visit. Patient has been advised to increase ramp time. (3) Lower extremity edema: Code(s): R60.0 - Localized edema Plan: With orthopnea, will start on empiric Lasix 20 mg daily. Medications: New furosemide 20 mg PO QAM 30 tabs 6RF Coding Level of Care Code Est Pt Level 4 (86272) Diagnoses Pulmonary emphysema J43.9 ROBERT (obstructive sleep apnea) G47.33 Lower extremity edema R60.0
[2023-10-06 15:33] VITALS: BP 120/77; PULSE 92; O2SAT 97; BMI 33.2
== END 2023-10-06 15:53 | disposition home or self-care (01) ==
PROVIDERS: PCP Internal Medicine; Visit Provider Internal Medicine Pulmonary Disease
DX: J43.9 Emphysema, unspecified (principal); G47.33 Obstructive sleep apnea (adult) (pediatric); R60.0 Localized edema
CPT/HCPCS: 99214

== ENCOUNTER → 2023-10-06 15:14 | Outpatient (BNVA) | payer OTHER, SELFPAY | PROVIDERS: PCP Internal Medicine; Visit Provider Internal Medicine Pulmonary Disease | DX: J43.9 Emphysema, unspecified (principal); G47.33 Obstructive sleep apnea (adult) (pediatric); R60.0 Localized edema | CPT/HCPCS: 99212 ==

== ENCOUNTER 2023-11-16 10:20 | Outpatient (AMB) | payer OTHER, SELFPAY ==
[2023-11-16 10:36] VITALS: BP 112/70; BMI 32.2
--- NOTE | 2023-11-16 10:36 | A.OFFPC_ITS ---
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 Worker Required: No Accompanied by: Spouse Allergies No Known Allergies Allergy (Verified 11/16/23 10:48) Medication List - Last Reconciled 11/16/23 by Damaris Padron MD albuterol sulfate 90 mcg/actuation 2 puffs inhalation Q4-6H PRN 30 days cephalexin 500 mg PO QID 7 days doxycycline hyclate 100 mg PO BID 7 days furosemide 20 mg PO QAM pilocarpine HCl 5 mg PO TID 30 days tiotropium-olodaterol 2.5-2.5 mcg/actuation (Stiolto Respimat) 2 puffs inhalation DAILY 30 days trazodone 50 mg PO BEDTIME PRN 90 days Tobacco use date assessed: 11/16/23 Dental Screening Dental Screen Date: 11/16/23 Did you have a dental visit in the last 12 months?: Yes Did you have a dental problem in the last 6 months where you did not have access to dental care?: No Was dental information given to patient?: Patient has dentist HPI HPI Comments History of Present Illness Details This is a 48-year-old male with COPD, opiate dependence, obstructive sleep apnea and mild major depression that comes today complaining of dyspnea on exertion and oxygen saturation in the 80s while sleeping. He is accompanied by which is the main historian. I made him walk fast through the rubio of the office and his oxygen saturation went down from 98% to 94% at room air. He also has dry mouth most likely due to furosemide but has improved with pilocarpine. Insomnia stable with trazodone as needed. His COPD is follow by pulmonology. Depression is in remission. Sleep study shows mild obstructive sleep apnea and he is compliant with CPAP. Has opiate dependence being a heroin user and was advised to quit and search for Suboxone Clinic or methadone clinic. [facility] Medical History (Updated 11/16/23 @ 12:18 by Damaris Padron MD) Nicotine dependence, cigarettes, uncomplicated Pleural effusion, right (~10/2020) Heroin use Surgical History History of tooth extraction Family History Mother No problems noted. Father Diabetes Social History Housing: Apartment Alcohol intake: former Patient Tobacco Use Status: Current everyday Tobacco user Tobacco use type: Cigarette Cigarette Packs Per Day: 0.5 Cigarettes Per Day: 7 Years Smoked: onset 11yo, 1ppd x 37yrs, now 1/2ppd - 35pyh e-Cigarette/Vaping Use: Never Used Second Hand Smoke Exposure: No service: No Current occupational status: unemployed Cognitive needs: No Hearing needs: No Vision needs: Yes Questionnaire PHQ-9 Over the last 2 weeks, how often have you been bothered by any of the following problems? 1. Little interest or pleasure in doing things: nearly every day 2. Feeling down, depressed, or hopeless: several days 3. Trouble falling or staying asleep, or sleeping too much: nearly every day 4. Feeling tired or having little energy: nearly every day 5. Poor appetite or overeating: not at all 6. Feeling bad about yourself - or that you are a failure or have let yourself or your family down: not at all 7. Trouble concentrating on things, such as reading the newspaper or watching television: several days 8. Moving or speaking so slowly that other people could have noticed. Or the opposite - being so fidgety or restless that you have been moving around a lot more than usual: nearly every day 9. Thoughts that you would be better off or of hurting yourself in some way: not at all Total score: 14 Depression Screening Interpretation: Positive Depression Screening Follow-up: Existing condition Depression Screening Done: Yes 48116 - PHQ-9 Billing: Yes Source: Developed by Drs. Sal Mccormack, Kori Alexander, Easton Marcum and colleagues, with an educational alexi from [employer]. Thrive Questionnaire Date Thrive assessed: 11/16/23 I am a: Patient What is your living situation today?: I have a steady place to live Within the past 12 months, did the food you bought not last and you didn't have the money to get more?: Never true Within the past 12 months, did you worry whether your food would run out before you got money to buy more?: Never true Do you have trouble paying for medicines?: No Do you have trouble getting transportation to medical appointments?: No Do you have trouble paying your heating and electricity bill?: No Do you have trouble taking care of your child, family member or friend?: No Do you have trouble with day-to-day activities such as bathing, preparing meals, shopping, managing finances, etc.?: No Are you currently unemployed and looking for a job?: No Are you interested in more education?: No Please select the resources that you would like help with: None Currently or been in a relationship where the following occur: no concerns reported AUDIT C Alcohol Use Questionnaire (AUDIT-C) 1. How often do you have a drink containing alcohol?: Never Total Score: 0 SAADIA-7 AMB Questionnaire SAADIA-7 Date SAADIA - 7 assessed: 11/16/23 Feeling nervous, anxious, or on edge: 3 = Nearly every day Not being able to stop or control worryin = Several days Worrying too much about different things: 3 = Nearly every day Trouble relaxin = Nearly every day Being so restless that it is hard to sit still: 3 = Nearly every day Becoming easily annoyed or irritable: 1 = Several days Feeling afraid as if something awful might happen: 0 = Not at all Total SAADIA-7 score (0-4 normal; 5-9 mild; 10-14 moderate; 15-21 severe): 14 Source: Developed by Drs. Sal Mccormack, Kori Alexander, Easton Marcum and colleagues, with an educational alexi from [employer]. SAADIA-7 Assessment Billing SAADIA-7 Assessment Tool: SAADIA-7 Assessment 86399 Review of Systems Const All systems reviewed & are unremarkable except as noted in HPI and below Eyes Reports no additional complaints, Denies change in vision and Denies other visual disturbances Card Denies chest pain at rest, Denies chest pain with activity, Denies edema, Denies irregular heart rhythm, Denies claudication, Denies dyspnea, Reports dyspnea on exertion, Denies orthopnea, Denies paroxysmal nocturnal dyspnea and Denies slow heart rate Resp Denies cough, Denies dyspnea and Reports dyspnea on exertion GI Denies abdominal pain, Denies change in bowel habits, Denies excessive flatus, Denies nausea and Denies vomiting Denies urinary hesitancy, Denies urinary incontinence and Denies urinary urgency Musc Denies abnormal gait, Denies atrophy, Denies deformity and Denies limited range of motion Skin/Breast Denies bleeding lesions, Denies changing lesions and Denies rash Neuro Denies abnormal gait, Denies behavioral changes and Denies lack of coordination Psych Denies behavioral changes Physical exam (Primary Care) Vital Signs: Last Vital Signs BP 112/70 11/16/23 10:36 BMI result Body Mass Index 32.2 Tobacco/Smoking Status: Tobacco use Status Tobacco use date assessed 11/16/23 11/16/23 10:42 Patient Tobacco Use Status Current everyday Tobacco 11/16/23 10:42 Tobacco use type Cigarette 11/16/23 10:42 e-Cigarette/Vaping Use Never Used 11/16/23 10:42 PHQ-9: PHQ-9 Score PHQ-9: Total score 14 11/16/23 10:53 Depression Screening Interpretation: Positive Depression Screening Follow-up: Existing condition Thrive Assessment: Date of Thrive Assessment Date Thrive assessed 11/16/23 11/16/23 10:42 Currently or been in a relationship where the following occur: no concerns reported Eyes General: appearance normal, both eyes and all related structures Eyelids: Yes eyelids normal Conjunctivae: conjunctivae normal Neck Neck: Yes normal visual inspection and Yes supple Resp Effort & Inspection: normal respiratory effort Auscultation: clear to auscultation bilaterally Cardio Jugular venous distension: no JVD Rate: regular rate Rhythm: regular rhythm Heart sounds: Murmur heart sound present Extrem General: Yes full ROM Assessment and Plan Assessment & Plan (1) Mild major depression: Code(s): F32.0 - Major depressive disorder, single episode, mild Plan: In remission. (2) Opiate dependence: Code(s): F11.20 - Opioid dependence, uncomplicated Plan: Was advised to quit heroin. (3) COPD (chronic obstructive pulmonary disease): Code(s): J44.9 - Chronic obstructive pulmonary disease, unspecified Plan: Continue long-acting inhaler. Use rescue inhaler as needed. Follow-up with pulmonology. (4) ROBERT (obstructive sleep apnea): Code(s): G47.33 - Obstructive sleep apnea (adult) (pediatric) Plan: Continue CPAP machine. Follow-up with pulmonology. Orders: Orders Overnight Pulse Oximetry Today R06.09 - Other forms of dyspnea CA echo transthoracic complete Today R01.1 - Cardiac murmur, unspecified, R06.09 - Other forms of dyspnea Referrals Ophthalmology Referral H53.8 - Other visual disturbances Coding Level of Care Code Est Pt Level 4 (13213) Diagnoses Mild major depression F32.0 Opiate dependence F11.20 COPD (chronic obstructive pulmonary disease) J44.9 ROBERT (obstructive sleep apnea) G47.33 Additional Codes SAADIA-7 Assessment Billing - SAADIA-7 Assessment Tool: SAADIA-7 Assessment 23422 ([id number]) Time Spent (min) 25
== END 2023-11-16 11:00 | disposition home or self-care (01) ==
PROVIDERS: PCP Internal Medicine; Visit Provider Internal Medicine
DX: F32.0 Major depressive disorder, single episode, mild (principal); F11.20 Opioid dependence, uncomplicated; J44.9 Chronic obstructive pulmonary disease, unspecified; G47.33 Obstructive sleep apnea (adult) (pediatric)
CPT/HCPCS: 99214

== ENCOUNTER → 2023-12-08 15:08 | Outpatient (REF) | payer OTHER, SELFPAY ==
--- NOTE | 2023-12-08 15:10 | CA_ITS ---
Transthoracic Echocardiogram Patient (Last, First, Middle): Logan Castorena, Gender: Male Date of : 1975 Age: 48 Procedure Date: 12/08/2023 Procedure Type: Transthoracic Echocardiogram Location: OP Height: 172.72 cm Weight: 95.26 kg BSA: 2.09 m2 Heart Rate: bpm BP: 134 / 80 mmHg Vice President Of Communications: Referring MD: Damaris Padron MD Setter Machine: Serjio Camacho MD Symptoms: R06.09 - Other forms of dyspnea Study Quality: Good ECG Rhythm: Sinus Conclusions: - 1. Normal LV systolic function with LVEF of 55-60% 2. Normal cardiac valvular Doppler 3. Normal RV systolic pressure 4. Mildly dilated ascending aorta at 4.1 cm 5. No pericardial effusion Findings Left Ventricle Normal left ventricular size and systolic function. There is mildly increased left ventricular wall thickness. The visually estimated ejection fraction is between 55-60%. Diastolic function is normal for age. Peak GLS is -19.8%, within normal limits. Right Ventricle Normal right ventricular cavity size and systolic function. Atria The left atrium is normal in size. The right atrium is normal in size. Aortic Valve Normal aortic valve structure and function. There is no aortic valve stenosis. There is no aortic valve regurgitation. Mitral Valve Normal mitral valve structure and function. There is trace mitral valve regurgitation. There is no mitral valve stenosis. Pulmonic Valve The pulmonic valve is normal. There is no pulmonic valve regurgitation. Tricuspid Valve Normal tricuspid valve structure. There is trace tricuspid valve regurgitation. The right ventricular systolic pressure is normal. The right ventricular systolic pressure is 23 mmHg. Normal right atrial pressure. There is no evidence of pulmonary hypertension. Great Vessels The pulmonary artery was not well visualized. There is mild dilatation of the ascending aorta measuring 4.10 cm. Venous The inferior vena cava is normal in size and collapses greater than 50% with inspiration. Pericardium/Pleural There is no evidence of pericardial effusion. Measurements 2D Linear Measurements IVSd: 1.20 0.6-0.9/0.6-1.0 cm LVIDd: 5.36 3.9-5.3/4.2-5.9 cm LVIDd Index: 2.56 2.4-3.2/2.2-3.1 cm/m2 LVIDs: 3.11 2.0-3.6 cm LVPWd: 1.28 0.7-1.1 cm Ao Root: 3.40 2.1-3.5 cm LA Diam: 3.60 2.7-3.8/3.0-4.0 cm LAIDs Index: 1.72 1.5-2.3 cm/m2 LV Mass: 341.02 67-162/88-224 g LV Mass Index: 163.17 43-95/49-115 g/m2 LVOT Diam: 2.40 3.0+(-)1.3 cm 2D Systolic Function EF 4C: 59.20 >55% EF 2C: 55.30 >55% EF BiP: 55.80 >55% Mitral Valve MV Pk E: 0.65 MV PK A: 0.56 MV Decel Time: 202.00 E/A: 1.20 E'Lateral: 10.70 E'Medial: 11.00 E/E' Med: 5.90 E/E' Lat: 6.00 PHT: 59.00 MVA PHT: 3.73 Decel Mccone: 3.20 Aortic Valve AoV Pk Salvador: 1.55 AoV Mn Salvador: 1.02 AoV VTI: 0.34 AoV Pk Grad: 10.00 Aov Mn Grad: 5.00 SATISH Cont.VTI: 2.79 LVOT LVOT Pk Salvador: 1.09 LVOT Mn Salvador: 0.70 LVOT VTI: 0.21 LVOT Pk Grad: 5.00 LVOT Mn Grad: 2.00 LVOT Diam: 2.40 LVOT Area: 4.52 Diastolic Function MV Pk E: 0.65 MV Pk A: 0.56 E/A: 1.20 E'Medial: 11.00 E/E' Med: 5.90 E' Laterial: 10.70 E/E' Lat: 6.00 Right Ventricle TAPSE (mm): 33.00 TVS' Salvador: 14.00 Tricuspid Valve TR Pk Salvador: 2.24 TR Pk Grad: 20.00 RA Press: 3.00 RVSP: 23.00 Great Vessels Aorta Ao Root-2D: 3.40 2.0-3.7 cm Ao Asc: 4.10 2.1-3.4 cm Pulmonary Valve PV Pk Salvador: 0.97 Peak PV Grad: 4.00 Updated in Other Vendor System with Status of Final Serjio Camacho MD electronically signed on 12/09/2023 12:03:29 PM with status of Final
== END ==
LOC: HO.CARD 15:08
PROVIDERS: PCP Internal Medicine; Visit Provider Internal Medicine
DX: R06.09 Other forms of dyspnea (principal); R01.1 Cardiac murmur, unspecified
CPT/HCPCS: 93306; 93356

== ENCOUNTER → 2023-12-08 15:10 | Outpatient (BNV) | payer OTHER, SELFPAY | PROVIDERS: PCP Internal Medicine; Visit Provider Internal Medicine Cardiovascular Disease | DX: R06.09 Other forms of dyspnea (principal); R01.1 Cardiac murmur, unspecified | CPT/HCPCS: 93306 ==

== ENCOUNTER 2024-01-11 16:18 | Outpatient (AMB) | payer OTHER, SELFPAY ==
[2024-01-11 16:21] VITALS: BP 120/82; BMI 32.4
--- NOTE | 2024-01-11 16:21 | A.OFFPC_ITS ---
Vital Signs 01/11/24 16:21 Height 5 ft 8 in Weight 213 lb BMI 32.4 BP 120/82 Blood Pressure Location Lt brachial Position Sitting Intake Visit Reasons: breast lump Intake Note: Patient here c/o lump on right breast, low testosterone Spinner Hand Required: No Accompanied by: Spouse Allergies No Known Allergies Allergy (Verified 01/11/24 16:30) Medication List - Last Reconciled 01/11/24 by Damaris Padron MD albuterol sulfate 90 mcg/actuation 2 puffs inhalation Q4-6H PRN 30 days furosemide 20 mg PO QAM pilocarpine HCl 5 mg PO TID 30 days tiotropium-olodaterol 2.5-2.5 mcg/actuation (Stiolto Respimat) 2 puffs inhalation DAILY 30 days trazodone 50 mg PO BEDTIME PRN 90 days Tobacco use date assessed: 11/16/23 Dental Screening Dental Screen Date: 01/11/24 Did you have a dental visit in the last 12 months?: Yes Did you have a dental problem in the last 6 months where you did not have access to dental care?: No Was dental information given to patient?: Patient has dentist HPI HPI Comments History of Present Illness Details Thi is a 48 year old male with mild major depression, erectile dysfunction and opioid dependence that complaints of right breast mass at 12 o'clock that has been present for over a year and as per patient is increasing in size. Accompanied by . He has history of heroin use and he said is on methadone but I could not find anything on [facility]. Has erectile dysfunction most likely due to low testosterone secondary to his opioid dependence. Depression stable with trazodone. REPLACED BY [facility] Medical History (Updated 01/11/24 @ 16:40 by Damaris Padron MD) Nicotine dependence, cigarettes, uncomplicated Pleural effusion, right (~10/2020) Heroin use Surgical History History of tooth extraction Family History Mother No problems noted. Father Diabetes Social History Housing: Apartment Alcohol intake: former Patient Tobacco Use Status: Current everyday Tobacco user Tobacco use type: Cigarette Cigarette Packs Per Day: 0.5 Cigarettes Per Day: 7 Years Smoked: onset 11yo, 1ppd x 35yrs, now 1/2ppd - 35pyh e-Cigarette/Vaping Use: Never Used Second Hand Smoke Exposure: No service: No Current occupational status: unemployed Cognitive needs: No Hearing needs: No Vision needs: Yes Questionnaire Thrive Questionnaire Date Thrive assessed: 11/16/23 SAADIA-7 AMB Questionnaire SAADIA-7 Date SAADIA - 7 assessed: 11/16/23 Source: Developed by Drs. Sal Mccormack, Kori Alexander, Easton Marcum and colleagues, with an educational alexi from [employer]. Review of Systems Const All systems reviewed & are unremarkable except as noted in HPI and below Eyes Reports no additional complaints, Denies change in vision and Denies other visual disturbances Card Denies chest pain at rest, Denies chest pain with activity, Denies edema, Denies irregular heart rhythm, Denies claudication, Denies dyspnea, Denies dyspnea on exertion, Denies orthopnea, Denies paroxysmal nocturnal dyspnea and Denies slow heart rate Resp Denies cough, Denies dyspnea and Denies dyspnea on exertion GI Denies abdominal pain, Denies change in bowel habits, Denies excessive flatus, Denies nausea and Denies vomiting Denies urinary hesitancy, Denies urinary incontinence and Denies urinary urgency Musc Denies abnormal gait, Denies atrophy, Denies deformity and Denies limited range of motion Skin/Breast Denies bleeding lesions, Denies changing lesions and Denies rash Neuro Denies abnormal gait, Denies behavioral changes and Denies lack of coordination Psych Denies behavioral changes Physical exam (Primary Care) Vital Signs: Last Vital Signs BP 120/82 01/11/24 16:21 BMI result Body Mass Index 32.4 Tobacco/Smoking Status: Tobacco use Status Tobacco use date assessed 11/16/23 01/11/24 16:26 Patient Tobacco Use Status Current everyday Tobacco 01/11/24 16:26 Tobacco use type Cigarette 01/11/24 16:26 e-Cigarette/Vaping Use Never Used 01/11/24 16:26 Thrive Assessment: Date of Thrive Assessment Date Thrive assessed 11/16/23 01/11/24 16:26 Eyes General: appearance normal, both eyes and all related structures Eyelids: Yes eyelids normal Conjunctivae: conjunctivae normal Neck Neck: Yes normal visual inspection and Yes supple Resp Effort & Inspection: normal respiratory effort Auscultation: clear to auscultation bilaterally Cardio Jugular venous distension: no JVD Rate: regular rate Rhythm: regular rhythm Heart sounds: S1 normal heart sound present and S2 normal heart sound present Extrem General: Yes full ROM Assessment and Plan Assessment & Plan (1) Breast mass, right: Comment: at 12 o'clock Code(s): N63.10 - Unspecified lump in the right breast, unspecified quadrant Plan: US breast and mammogram ordered. (2) Erectile dysfunction: Code(s): N52.9 - Male erectile dysfunction, unspecified Plan: Testosterone levels ordered. (3) Mild major depression: Code(s): F32.0 - Major depressive disorder, single episode, mild Plan: Continue Trazodone. (4) Opiate dependence: Code(s): F11.20 - Opioid dependence, uncomplicated Plan: As per patient he is on methadone. Orders: Orders Testosterone, Free/Total 01/11/24 R79.89 - Other specified abnormal findings of blood chemistry US breast RT complete 01/11/24 N63.10 - Unspecified lump in the right breast, unspecified quadrant MM diagnostic mammo BI 01/11/24 N63.10 - Unspecified lump in the right breast, unspecified quadrant NE nerve conduction velocity 01/11/24 R20.2 - Paresthesia of skin Coding Level of Care Code Est Pt Level 4 (11432) Diagnoses Breast mass, right N63.10 Erectile dysfunction N52.9 Mild major depression F32.0 Opiate dependence F11.20 Time Spent (min) 23
== END 2024-01-11 16:38 | disposition home or self-care (01) ==
PROVIDERS: PCP Internal Medicine; Visit Provider Internal Medicine
DX: N63.11 Unspecified lump in the right breast, upper outer quadrant (principal); N52.9 Male erectile dysfunction, unspecified; F32.0 Major depressive disorder, single episode, mild; F11.20 Opioid dependence, uncomplicated
CPT/HCPCS: 99214

== ENCOUNTER 2024-01-18 15:13 | Outpatient (REF) | payer OTHER, SELFPAY ==
[2024-01-18 18:58] LABS: Folate 11.7 ng/mL (> or = 4.0); Vitamin B12 709 pg/mL (200-900)
== END 2024-01-18 15:14 | disposition home or self-care (01) ==
LOC: HO.LAB 15:13
PROVIDERS: Absent Provider Internal Medicine; PCP Internal Medicine; Visit Provider Internal Medicine Pulmonary Disease
DX: R79.89 Other specified abnormal findings of blood chemistry (principal); E53.8 Deficiency of other specified B group vitamins
CPT/HCPCS: 36415; 82607; 82746; 84402; 84403; 99212

== ENCOUNTER 2024-01-18 15:13 | Outpatient (AMB) | payer OTHER, SELFPAY ==
--- NOTE | 2024-01-18 15:16 | A.OFFVIS_ITS ---
Intake Vital Signs 01/18/24 15:17 Height 5 ft 8 in Weight 213 lb BMI 32.4 BP 108/70 Blood Pressure Location Rt brachial Position Sitting Pulse 85 Pulse Source Doppler Pulse Oximetry (%) 93 Oxygen Delivery Method Room Air Intake Visit Reasons: Dyspnea Allergies No Known Allergies Allergy (Verified 01/18/24 15:20) HPI Dyspnea HPI Details 48-year-old gentleman active 30 pack-yea r smoker now followed for pulmonary emphysema and obstructive sleep apnea. He continues on Stiolto and albuterol MDI with good control of his pulmonary symptoms. His orthopnea and lower extremity edema is controlled on Lasix 20 mg daily. He uses CPAP with good control of his sleep apnea symptoms. However, patient continues to complain of significant dyspnea on exertion. [facility] Medical History (Updated 01/11/24 @ 16:40 by Damaris Padron MD) Nicotine dependence, cigarettes, uncomplicated Pleural effusion, right (~10/2020) Heroin use Surgical History History of tooth extraction Family History Mother No problems noted. Father Diabetes Social History (Reviewed 01/18/24 @ 15:20 by Vangie Ness [facility]) Housing: Apartment Alcohol intake: former Patient Tobacco Use Status: Current everyday Tobacco user Tobacco use type: Cigarette Cigarette Packs Per Day: 0.5 Cigarettes Per Day: 7 Years Smoked: onset 11yo, 1ppd x 35yrs, now 1/2ppd - 35pyh e-Cigarette/Vaping Use: Never Used Second Hand Smoke Exposure: No service: No Current occupational status: unemployed Cognitive needs: No Hearing needs: No Vision needs: Yes Review of Systems Const Denies daytime sleepiness, Denies excessive sweating, Denies fatigue, Denies fever(s), Denies lethargy, Denies malaise, Denies night sweats, Denies snoring and Denies weight loss Eyes Denies blurry vision and Denies itchy eyes ENT Denies nasal congestion, Denies post nasal drip, Denies sinus pain, Denies sinus pressure and Denies other ( Thrush) Card Denies chest pain, Denies pedal edema, Denies dyspnea, Reports dyspnea on exertion, Denies orthopnea and Denies paroxysmal nocturnal dyspnea Resp Denies cough, Denies hemoptysis, Denies excessive phlegm production, Denies dyspnea, Reports dyspnea on exertion, Denies snoring and Denies wheezing GI Denies abdominal pain and Denies heartburn Musc Denies myalgias, Denies arthralgias and Denies joint swelling Skin/Breast Denies rash Neuro Denies memory loss and Denies seizure-like activity Psych Denies abnormal sleep pattern, Denies anxiety and Denies memory loss Endo Denies excessive sweating, Denies fatigue and Denies heat intolerance Lake/Lymph Denies easy bruising Aller/Immun Denies itchy eyes, Denies seasonal rhinorrhea and Denies wheezing Physical Exam Vital Signs: Last Vital Signs Pulse 85 01/18/24 15:17 BP 108/70 01/18/24 15:17 Pulse Ox 93 01/18/24 15:17 Oxygen Delivery Method Room Air 01/18/24 15:17 BMI result Body Mass Index 32.4 Const General: no acute distress and alert Nutritional Appearance: not obese Orientation/consciousness: Other orientation findings ( oriented) HEENT Head: Yes atraumatic Eyes General: appearance normal, both eyes and all related structures Sclerae: sclerae normal EOM: EOMs intact bilaterally Neck Neck: Yes supple Lymphatic: no lymphadenopathy noted Resp Effort & Inspection: normal respiratory effort and no use of accessory muscles Auscultation: clear to auscultation bilaterally Cardio Rate: regular rate Rhythm: regular rhythm Heart sounds: no gallops, no murmurs and no rubs Skin General skin exam: other ( warm) Extrem General: No clubbing, No cyanosis and No edema Assessment & Plan Assessment & Plan (1) WHITLOCK (dyspnea on exertion): Code(s): R06.09 - Other forms of dyspnea Plan: Still significantly symptomatic. Will obtain cardiopulmonary exercise continue Lasix 20 mg daily. (2) Pulmonary emphysema: Code(s): J43.9 - Emphysema, unspecified Plan: Well controlled on Stiolto and albuterol MDI. Continue current regimen. (3) ROBERT (obstructive sleep apnea): Code(s): G47.33 - Obstructive sleep apnea (adult) (pediatric) Plan: Well controlled on CPAP therapy. Continue CPAP therapy. Orders: Orders CA cardiopulmonary stress test Today R06.09 - Other forms of dyspnea Medications: Refilled tiotropium-olodaterol 2.5-2.5 mcg/actuation (Stiolto Respimat) 2 puffs inhalation DAILY 30 days 4 grams 6RF J43.9 - Emphysema, unspecified Coding Level of Care Code Est Pt Level 4 (08576) Diagnoses WHITLOCK (dyspnea on exertion) R06.09 Pulmonary emphysema J43.9 ROBERT (obstructive sleep apnea) G47.33
[2024-01-18 15:17] VITALS: BP 108/70; PULSE 85; O2SAT 93; BMI 32.4
== END 2024-01-18 15:28 | disposition home or self-care (01) ==
PROVIDERS: PCP Internal Medicine; Visit Provider Internal Medicine Pulmonary Disease
DX: R06.09 Other forms of dyspnea (principal); J43.9 Emphysema, unspecified; G47.33 Obstructive sleep apnea (adult) (pediatric)
CPT/HCPCS: 99214

== ENCOUNTER 2024-01-31 09:43 | Outpatient (REF) | payer OTHER, SELFPAY ==
--- NOTE | ~2024-01-31 | MM_ITS ---
EXAMINATION: MM DIAGNOSTIC DIGITAL BREAST TOMOSYNTHESIS, BILATERAL US BREAST LIMITED, RIGHT MAMMOGRAPHY: CLINICAL INFORMATION: 48-year-old male, complaining of unspecified lump in the right breast, upper outer quadrant, with associated tenderness. COMPARISON: Mammography: No prior available. TECHNIQUE: Digital breast tomosynthesis is performed in both the craniocaudal and mediolateral oblique views along with computer-aided detection (CAD). Synthesized 2D images are generated from the tomosynthesis. FINDINGS: There are scattered areas of fibroglandular density (ACR BI-RADS breast composition Category b). There is right greater than left moderate retroareolar breast tissue development, consistent with male gynecomastia. There is no definite mass, suspicious calcifications, or area of architectural distortion. ULTRASOUND: CLINICAL INFORMATION: Bilateral moderate male gynecomastia. Palpable lump upper outer quadrant right breast, associated tenderness. COMPARISON: None TECHNIQUE: Targeted sonographic evaluation was performed using a high frequency linear transducer. Attention was given to the retroareolar regions and right area of palpable concern. Selected archived documentation. FINDINGS: RIGHT BREAST: There is moderate retroareolar breast tissue development consistent with gynecomastia. There is no suspicious mass, architectural abnormality, abnormal shadowing, or cystic abnormality. There is an echogenic subcutaneous lipomatous nodule measuring 1.4 x 1.2 x 1.9 cm near the region of palpable concern, likely fat contusion secondary to excessive palpation. This finding is benign. MM/MM tomosynthesis diagnostic BI IMPRESSION: Benign right greater than left moderate male gynecomastia. Recommend clinical management. No findings suspicious for malignancy. Lipomatous nodule the 9:00 axis right breast, likely due to to excessive palpation. This is benign. OVERALL ASSESSMENT: Mammography: BI-RADS 2 - Benign Findings Ultrasound: BI-RADS 2 - Benign Findings RECOMMENDATION: 1. Patient should be managed based on the clinical impression. Decision to proceed with biopsy should be based on clinical grounds and degree of clinical concern. Results were provided to the patient at time of visit by the technologist. This patient's information was entered into a reminder system with a target due date for their next mammogram.
== END 2024-01-31 09:44 | disposition home or self-care (01) ==
LOC: HO.MAMMO 09:43
PROVIDERS: PCP Internal Medicine; Visit Provider Internal Medicine
DX: N64.4 Mastodynia (principal); N63.11 Unspecified lump in the right breast, upper outer quadrant
CPT/HCPCS: 76642; 77062; 77066

== ENCOUNTER → 2024-01-31 11:00 | Outpatient (BNV) | payer OTHER, SELFPAY | PROVIDERS: PCP Internal Medicine; Visit Provider Radiology Diagnostic Radiology | DX: N62 Hypertrophy of breast (principal); D17.1 Benign lipomatous neoplasm of skin and subcutaneous tissue of trunk | CPT/HCPCS: 76642; 77062; 77066 ==

== ENCOUNTER 2024-02-19 09:59 | Outpatient (AMB) | payer OTHER, SELFPAY ==
--- NOTE | 2024-02-19 10:02 | MHC.PC.OV ---
Vital Signs 02/19/24 10:03 Height 5 ft 8 in Weight 210 lb BMI 31.9 BP 118/80 Blood Pressure Location Lt brachial Position Sitting Intake Visit Reasons: Annual Exam Intake Note: Patient here for an annual physical exam Stretcher And Drier Required: No Accompanied by: Self / Same As Patient Allergies No Known Allergies Allergy (Verified 02/19/24 10:32) Medication List - Last Reconciled 02/19/24 by Damaris Padron MD albuterol sulfate 90 mcg/actuation 2 puffs inhalation Q4-6H PRN 30 days furosemide 20 mg PO QAM pilocarpine HCl 5 mg PO TID 30 days tiotropium-olodaterol 2.5-2.5 mcg/actuation (Stiolto Respimat) 2 puffs inhalation DAILY 30 days trazodone 50 mg PO BEDTIME PRN 90 days Tobacco use date assessed: 11/16/23 Dental Screening Dental Screen Date: 01/11/24 HPI HPI Comments History of Present Illness Details This is a 49-year-old male with opioid dependence, mild major depression and COPD that comes for his physical exam. On methadone for his opiate dependence which is working well. Depression somewhat stable with trazodone. COPD well control with Stiolto. Complains of occasional chest pain and shortness of breath. Will see pulmonology next week. Also has erectile dysfunction and will see Urology next week. [facility] Medical History (Updated 02/19/24 @ 10:48 by Damaris Padron MD) Nicotine dependence, cigarettes, uncomplicated Pleural effusion, right (~10/2020) Heroin use Surgical History History of tooth extraction Family History Mother No problems noted. Father Diabetes Social History Housing: Apartment Alcohol intake: former Patient Tobacco Use Status: Current everyday Tobacco user Tobacco use type: Cigarette Cigarette Packs Per Day: 0.5 Cigarettes Per Day: 6 Years Smoked: onset 11yo, 1ppd x 37yrs, now 1/2ppd - 35pyh e-Cigarette/Vaping Use: Never Used Second Hand Smoke Exposure: No service: No Current occupational status: unemployed Cognitive needs: No Hearing needs: No Vision needs: Yes Questionnaire Thrive Questionnaire Date Thrive assessed: 11/16/23 SAADIA-7 AMB Questionnaire SAADIA-7 Date SAADIA - 7 assessed: 11/16/23 Source: Developed by Drs. Sal Mccormack, Kori Alexander, Easton Marcum and colleagues, with an educational alexi from [employer]. Review of Systems Const All systems reviewed & are unremarkable except as noted in HPI and below Eyes Reports no additional complaints, Denies change in vision and Denies other visual disturbances Card Reports chest pain at rest, Reports chest pain with activity, Denies edema, Denies irregular heart rhythm, Denies claudication, Reports dyspnea, Denies dyspnea on exertion, Denies orthopnea, Denies paroxysmal nocturnal dyspnea and Denies slow heart rate Resp Denies cough, Reports dyspnea and Denies dyspnea on exertion GI Denies abdominal pain, Denies change in bowel habits, Denies excessive flatus, Denies nausea and Denies vomiting Denies urinary hesitancy, Denies urinary incontinence and Denies urinary urgency Physical exam (Primary Care) Vital Signs: Last Vital Signs BP 118/80 02/19/24 10:03 BMI result Body Mass Index 31.9 Tobacco/Smoking Status: Tobacco use Status Tobacco use date assessed 11/16/23 02/19/24 10:07 Patient Tobacco Use Status Current everyday Tobacco 02/19/24 10:07 Tobacco use type Cigarette 02/19/24 10:07 e-Cigarette/Vaping Use Never Used 02/19/24 10:07 Thrive Assessment: Date of Thrive Assessment Date Thrive assessed 11/16/23 02/19/24 10:07 Const Orientation/consciousness: patient oriented x3 HENMT Head: Yes normal to inspection, Yes normocephalic and Yes atraumatic Ears: external ears normal Eyes General: appearance normal, both eyes and all related structures Eyelids: Yes eyelids normal Conjunctivae: conjunctivae normal Neck Neck: Yes normal visual inspection and Yes supple Resp Effort & Inspection: normal respiratory effort Auscultation: clear to auscultation bilaterally Cardio Jugular venous distension: no JVD Rate: regular rate Rhythm: regular rhythm Heart sounds: S1 normal heart sound present and S2 normal heart sound present GI Inspection: Yes normal to inspection Palpation (GI): Soft to palpation and nontender Auscultation: normal bowel sounds Skin General skin exam: no rashes or lesions noted Neuro General: patient oriented x3 and no focal motor deficits Extrem General: Yes full ROM Assessment and Plan Assessment & Plan (1) Physical exam: Code(s): Z00.00 - Encounter for general adult medical examination without abnormal findings Plan: Repeat in a year. (2) Opiate dependence: Code(s): F11.20 - Opioid dependence, uncomplicated Qualifiers: Substance use status: with opioid-induced sexual dysfunction Qualified Code(s): F11.281 - Opioid dependence with opioid-induced sexual dysfunction Plan: Continue methadone with methadone clinic. (3) Mild major depression: Code(s): F32.0 - Major depressive disorder, single episode, mild Plan: Continue trazodone. (4) COPD (chronic obstructive pulmonary disease): Code(s): J44.9 - Chronic obstructive pulmonary disease, unspecified Plan: Continue Stiolto. Use rescue inhaler as needed. Follow-up with pulmonology next week. Medications: Refilled tiotropium-olodaterol 2.5-2.5 mcg/actuation (Stiolto Respimat) 2 puffs inhalation DAILY 30 days 4 grams 6RF J43.9 - Emphysema, unspecified albuterol sulfate 90 mcg/actuation 2 puffs inhalation Q4-6H 30 days PRN 1 ea 6RF shortness of breath or wheezing R06.09 - Other forms of dyspnea Coding Level of Care Code Est Pt Prev Care 40-64y(46778) Diagnoses Physical exam Z00.00 Opioid dependence with opioid-induced sexual dysfunction F11.281 Substance use status: with opioid-induced sexual dysfunction Mild major depression F32.0 COPD (chronic obstructive pulmonary disease) J44.9 Time Spent (min) 32
[2024-02-19 10:03] VITALS: BP 118/80; BMI 31.9
== END 2024-02-19 10:42 | disposition home or self-care (01) ==
PROVIDERS: Visit Provider Internal Medicine
DX: Z00.00 Encounter for general adult medical examination without abnormal findings (principal); F11 Opioid related disorders; F32.0 Major depressive disorder, single episode, mild; J44.9 Chronic obstructive pulmonary disease, unspecified
CPT/HCPCS: 99396

== ENCOUNTER 2024-03-28 15:10 | Outpatient (REF) | payer OTHER, SELFPAY ==
[2024-04-04 21:18] LABS: Testosterone, Free 35.7 pg/mL (35.0-155.0); Testosterone, Total 476 ng/dL (250-1100)
== END 2024-03-28 15:11 | disposition home or self-care (01) ==
LOC: HO.LAB 15:10
PROVIDERS: PCP Internal Medicine; Visit Provider Internal Medicine
DX: R79.89 Other specified abnormal findings of blood chemistry (principal)
CPT/HCPCS: 36415; 84402; 84403

== ENCOUNTER 2024-08-15 11:09 | Outpatient (REF) | payer OTHER, SELFPAY ==
--- NOTE | ~2024-08-15 | CT_ITS ---
EXAMINATION: CT LOW-DOSE SCREENING CHEST WITHOUT CONTRAST CLINICAL INFORMATION: Nicotine dependence, cigarettes, uncomplicated. The patient is a current smoker with a 38 pack-year history of smoking. COMPARISON: Multiple prior CT scans of the chest, the most recent of which is dated 09/30/2023 and the most remote of which is dated 03/31/2023. TECHNIQUE: Multidetector volumetric CT imaging of the chest is performed on a Siemens SOMATOM Definition scanner without contrast using low dose technique. Additional 2D coronal and sagittal reformatted images and axial 3D maximum intensity projection (MIP) images are generated on the CT workstation. This CT examination was performed using dose optimization techniques as appropriate, variously including the following: *Automated exposure control *Adjustment of mA and/or kV according to patient size (this includes techniques or standardized protocols for targeted exams where dose is matched to indication/reason for exam; i.e. extremities or head) *Use of iterative reconstruction technique TOTAL EXAM DLP: 74 mGy-cm. CTDIvol: 1.83 mGy. FINDINGS: PULMONARY NODULES: A few pulmonary nodules are present that are unchanged. There is a 4.9 mm right lower lobe nodule unchanged compared to 08/10/2023 (5:332 compare prior 5:306). Triangular 4 mm nodule right upper lobe likely an intrapulmonary node unchanged (5:226 compare prior 5:202). There is no new, increasing sized or suspicious pulmonary nodule. LUNGS: Lungs bilaterally symmetrically expanded. Scarring and atelectasis are present at the right lung base in the lower lobe as well as in the lingula and right middle lobe. There is emphysema and mild bronchial thickening without bronchiectasis. No effusion or pneumothorax. Central airways patent. MEDIASTINUM: No mediastinal, hilar or axillary adenopathy or free fluid collection. CORONARY ARTERY CALCIFICATION: Minimal. THYROID GLAND: Unremarkable to the extent seen. CARDIOVASCULAR STRUCTURES: Aortic and heart size normal. No pericardial effusion. CHEST WALL/AXILLA: Unremarkable. UPPER ABDOMEN: Included portions of the solid organs in the upper abdomen unremarkable on noncontrast imaging. A benign right upper pole Bosniak class I renal cyst is noted which requires no additional imaging or follow up. No solid renal masses are seen. OSSEOUS STRUCTURES: No suspicious focal findings. CT/CT lung screening IMPRESSION: No findings seen suspicious for malignancy. ASSESSMENT: 1. Lung-RADS Category 2: Benign appearance or behavior of nodules. N/A 2. Lung-RADS Category S: Negative. There are no clinically significant or potentially clinically significant findings not related to the lungs requiring urgent additional evaluation. RECOMMENDATION: Continued routine annual low-dose CT lung screening in 1 year is recommended. An order for CT CHEST LOW DOSE CANCER SCREENING ([id number]) can be placed. Electronically signed by: Celio Vasques MD 09/27/2024 11:22 PM PETTY
== END 2024-08-15 11:10 | disposition home or self-care (01) ==
LOC: HO.CT 11:09
PROVIDERS: PCP Internal Medicine; Visit Provider Physician Assistant Medical
DX: Z12.2 Encounter for screening for malignant neoplasm of respiratory organs (principal); F17.210 Nicotine dependence, cigarettes, uncomplicated
CPT/HCPCS: 71271

== ENCOUNTER 2024-09-04 14:14 | Outpatient (AMB) | payer OTHER, SELFPAY ==
[2024-09-04 14:18] VITALS: BP 100/62; PULSE 80; O2SAT 98; BMI 30.7
--- NOTE | 2024-09-04 14:18 | MHC.OFFVIS ---
Vital Signs 09/04/24 14:18 Height 5 ft 8 in Weight 201 lb 11.567 oz BMI 30.7 BP 100/62 Blood Pressure Location Rt brachial Position Sitting Pulse 80 Pulse Source Doppler Pulse Oximetry (%) 98 Oxygen Delivery Method Room Air Intake Visit Reasons: Dyspnea/LDCT Follow Up Allergies No Known Allergies Allergy (Verified 09/04/24 14:22) HPI HPI Dyspnea/LDCT Follow Up: Details: 48-year-old gentleman active 30 pack-year smoker now followed for pulmonary emphysema and obstructive sleep apnea. He continues on Stiolto and albuterol MDI with good control of his pulmonary symptoms. His orthopnea and lower extremity edema is controlled on Lasix 20 mg daily. He uses CPAP with good control of his sleep apnea symptoms. However, patient continues to complain of significant dyspnea on exertion. After the last office visit patient had cardiopulmonary exercise test that showed no pulmonary limitation, but likely cardiovascular limitation to his exercise capacity. Patient states that he is also anemic and he continues to work with his primary care on the anemia component. His lung cancer screening CT chest is pending. [facility] Medical History (Updated 02/19/24 @ 10:48 by Damaris Padron MD) Nicotine dependence, cigarettes, uncomplicated Pleural effusion, right (~10/2020) Heroin use Surgical History History of tooth extraction Family History Mother No problems noted. Father Diabetes Social History Housing: Apartment Alcohol intake: former Patient Tobacco Use Status: Current everyday Tobacco user Tobacco use type: Cigarette Cigarette Packs Per Day: 0.5 Cigarettes Per Day: 6 Years Smoked: onset 11yo, 1ppd x 37yrs, now 1/2ppd - 35pyh e-Cigarette/Vaping Use: Never Used Second Hand Smoke Exposure: No service: No Current occupational status: unemployed Cognitive needs: No Hearing needs: No Vision needs: Yes Review of Systems Const Denies daytime sleepiness, Denies excessive sweating, Denies fatigue, Denies fever(s), Denies lethargy, Denies malaise, Denies night sweats, Denies snoring and Denies weight loss Eyes Denies blurry vision and Denies itchy eyes ENT Denies nasal congestion, Denies post nasal drip, Denies sinus pain, Denies sinus pressure and Denies other ( Thrush) Card Denies chest pain, Denies pedal edema, Denies dyspnea, Reports dyspnea on exertion, Denies orthopnea and Denies paroxysmal nocturnal dyspnea Resp Denies cough, Denies hemoptysis, Denies excessive phlegm production, Denies dyspnea, Reports dyspnea on exertion, Denies snoring and Denies wheezing GI Denies abdominal pain and Denies heartburn Musc Denies myalgias, Denies arthralgias and Denies joint swelling Skin/Breast Denies rash Neuro Denies memory loss and Denies seizure-like activity Psych Denies abnormal sleep pattern, Denies anxiety and Denies memory loss Endo Denies excessive sweating, Denies fatigue and Denies heat intolerance Lake/Lymph Denies easy bruising Aller/Immun Denies itchy eyes, Denies seasonal rhinorrhea and Denies wheezing Physical Exam Vital Signs: Last Vital Signs Pulse 80 09/04/24 14:18 BP 100/62 09/04/24 14:18 Pulse Ox 98 09/04/24 14:18 Oxygen Delivery Method Room Air 09/04/24 14:18 BMI result Body Mass Index 30.7 Const General: no acute distress and alert Nutritional Appearance: not obese Orientation/consciousness: Other orientation findings ( oriented) HEENT Head: Yes atraumatic Eyes General: appearance normal, both eyes and all related structures Sclerae: sclerae normal EOM: EOMs intact bilaterally Neck Neck: Yes supple Lymphatic: no lymphadenopathy noted Resp Effort & Inspection: normal respiratory effort and no use of accessory muscles Auscultation: clear to auscultation bilaterally Cardio Rate: regular rate Rhythm: regular rhythm Heart sounds: no gallops, no murmurs and no rubs Skin General skin exam: other ( warm) Extrem General: No clubbing, No cyanosis and No edema Assessment & Plan Assessment & Plan (1) COPD (chronic obstructive pulmonary disease): Code(s): J44.9 - Chronic obstructive pulmonary disease, unspecified Category: Medical Plan: Well controlled on current regimen of Stiolto and albuterol MDI. Continue current regimen. (2) Nicotine dependence, cigarettes, uncomplicated: Comment: (current smoker - onset 11yo, 1ppd x 37yrs, now 1/2ppd - 35pyh) Code(s): F17.210 - Nicotine dependence, cigarettes, uncomplicated Category: Medical Plan: Lung cancer screening follow-up CT chest is pending. (3) ROBERT (obstructive sleep apnea): Code(s): G47.33 - Obstructive sleep apnea (adult) (pediatric) Category: Medical Plan: Well controlled on current CPAP therapy. Continue CPAP therapy. (4) WHITLOCK (dyspnea on exertion): Code(s): R06.09 - Other forms of dyspnea Category: Medical Plan: Results of cardiopulmonary exercise test reviewed, patient does not have pulmonary limitation to his exercise capacity, but likely has cardiovascular limitation. Patient states that he has been previously diagnosed with anemia and he continues to work with his PCP regarding anemia component. If not improving after anemia treatment, patient will likely require Cardiology evaluation. Coding Level of Care Code Est Pt Level 4 (39166) Complex EM visit Add On G2211 Diagnoses COPD (chronic obstructive pulmonary disease) J44.9 Nicotine dependence, cigarettes, uncomplicated F17.210 ROBERT (obstructive sleep apnea) G47.33 WHITLOCK (dyspnea on exertion) R06.09
== END 2024-09-04 14:42 | disposition home or self-care (01) ==
LOC: HO.HPS 14:15
PROVIDERS: PCP Internal Medicine; Visit Provider Internal Medicine Pulmonary Disease
DX: J44.9 Chronic obstructive pulmonary disease, unspecified (principal); F17.210 Nicotine dependence, cigarettes, uncomplicated; G47.33 Obstructive sleep apnea (adult) (pediatric); R06.09 Other forms of dyspnea
CPT/HCPCS: 99214; G2211

== ENCOUNTER → 2024-09-04 14:14 | Outpatient (BNVA) | payer OTHER, SELFPAY | PROVIDERS: PCP Internal Medicine; Visit Provider Internal Medicine Pulmonary Disease | DX: J43.9 Emphysema, unspecified (principal); G47.33 Obstructive sleep apnea (adult) (pediatric); R06.09 Other forms of dyspnea; F17.210 Nicotine dependence, cigarettes, uncomplicated; Z99.89 Dependence on other enabling machines and devices | CPT/HCPCS: 99212 ==

== ENCOUNTER 2024-10-28 08:07 | Outpatient (REF) | payer OTHER, SELFPAY ==
[2024-10-28 08:22] LABS: MANUAL DIFF FLAG NO
[2024-10-28 09:11] LABS: Basophils Absolute Auto 0.1 X10*3/uL (0.0-0.2); Basophils Percent Auto 0.8 % (0-2); Eosinophils Absolute Auto 0.5 X10*3/uL (0.0-0.4); Eosinophils Percent Auto 5.8 % (0-4); Hematocrit 40.9 % (42.0-52.0); Hemoglobin 13.8 g/dl (14.0-18.0); Imm Gran Abs Auto 0.04 X10*3/uL (0.00-0.03); Imm Gran Pct Auto 0.4 % (0.0-0.4); Lymphocytes Absolute Auto 3.1 X10*3/uL (1.2-4.9); Lymphocytes Percent Auto 35.2 % (20-40); Mean Corpuscular HGB Conc 33.7 g/dl (31.0-36.0); Mean Corpuscular Hemoglobin 29.6 pg (27.0-33.0); Mean Corpuscular Volume 87.8 fL (80.0-98.0); Mean Platelet Volume 11.1 fL (9.4-12.4); Monocytes Absolute Auto 0.7 X10*3/uL (0.1-1.2); Monocytes Percent Auto 7.4 % (2-11); Neutrophils Absolute Auto 4.5 x10*3/uL (2.0-8.3); Neutrophils Percent Auto 50.4 % (45-73); Platelet Count 118 X10*3/uL (160-400); Red Blood Count 4.66 X10*6/uL (4.60-5.80); Red Cell Distribution Width 13.2 % (11.0-16.0); White Blood Count 8.9 X10*3/uL (4.8-10.8)
[2024-10-28 09:31] LABS: Estimated Average Glucose 111 mg/dL; Hemoglobin A1c % 5.5 % (<6.0); Total Hemoglobin (HGBA1C) 3560.5883 umol/L
[2024-10-28 10:03] LABS: Iron 91 mcg/dL (45-160); Percent Iron Saturation 32 % (15-50); Total Iron Binding Capacity 286 mcg/dL (228-428); Unsaturated Iron Binding 195 ug/dL
[2024-11-04 14:58] LABS: Testosterone, Total 390 ng/dL (250-1100)
== END 2024-10-28 08:08 | disposition home or self-care (01) ==
LOC: HO.LAB 08:07
PROVIDERS: PCP Internal Medicine; Visit Provider Internal Medicine
DX: E11.9 Type 2 diabetes mellitus without complications (principal); R79.89 Other specified abnormal findings of blood chemistry; D64.9 Anemia, unspecified
CPT/HCPCS: 36415; 83036; 83540; 84402; 84403; 85025

== ENCOUNTER 2024-11-15 11:11 | Outpatient (AMB) | payer OTHER, SELFPAY ==
--- NOTE | 2024-11-15 11:15 | A.OFFVIS_ITS ---
Intake Visit Reasons: Male Erectile Dysfunction Intake Note: Patient is present for MALE ERECTILE DYSFUNCTION Urology Medication:NONE Antibiotic Allergy:NONE Blood Thinner:NONE Certified Coder Required: No Allergies No Known Allergies Allergy (Verified 11/15/24 11:16) HPI Comments Details: on methadone 140 mg daily h/o cocain and heroine use, nicotine currently 7-10 cigarettes goldy [facility] Medical History Nicotine dependence, cigarettes, uncomplicated Pleural effusion, right (~10/2020) Heroin use Surgical History History of tooth extraction Family History Mother No problems noted. Father Diabetes Social History Housing: Apartment Alcohol intake: former Patient Tobacco Use Status: Current everyday Tobacco user Tobacco use type: Cigarette Cigarette Packs Per Day: 0.5 Cigarettes Per Day: 6 Years Smoked: onset 11yo, 1ppd x 37yrs, now 1/2ppd - 35pyh e-Cigarette/Vaping Use: Never Used Second Hand Smoke Exposure: No service: No Current occupational status: unemployed Cognitive needs: No Hearing needs: No Vision needs: Yes Review of Systems Const All systems reviewed & are unremarkable except as noted in HPI and below Reports no additional complaints Eyes Reports no additional complaints ENT Reports no additional complaints Card Reports no additional complaints Resp Reports no additional complaints GI Reports no additional complaints Reports as per HPI Musc Reports no additional complaints Skin/Breast Reports system reviewed and no additional complaints, except as documented Neuro Reports no additional complaints Psych Reports no additional complaints Endo Reports no additional complaints Lake/Lymph Reports no additional complaints Aller/Immun Reports no additional complaints Physical Exam Const General: healthy appearing, no acute distress and well developed Orientation/consciousness: patient oriented x3 HEENT Head: Yes normocephalic and Yes atraumatic Eyes Conjunctivae: conjunctivae normal Neck Neck: Yes normal visual inspection Chest Chest palpation & inspection: normal inspection of the chest Resp Effort & Inspection: normal respiratory effort Cardio Rate: regular rate GI Inspection: Yes normal to inspection Neuro General: patient oriented x3 Extrem General: No pedal edema Psych Appearance: grossly normal Affect: normal affect Results AMB Urinalysis, Automated UA Leukoctes 0 Kamini/uL Last Edit by MOSHE Kenny on 11/15/24 11:36 UA Nitrite Negative Last Edit by MOSHE Kenny on 11/15/24 11:36 UA Urobilinogen 0.2 mg/dL Last Edit by MOSHE Kenny on 11/15/24 11:3 6 UA Protein 30 mg/dL Last Edit by MOSHE Kenny on 11/15/24 11:36 UA pH 6.0 Last Edit by Caity Salter [facility] on 11/15/24 11:36 UA Blood 0 Neil/uL Last Edit by MOSHE Kenny on 11/15/24 11:36 UA Specific [place] 1.030 Last Edit by Caity Salter [facility] on 11/15/24 11: 36 UA Ketone Positive Last Edit by MOSHE Kenny on 11/15/24 11:36 UA Bilirubin 0 mg/dL Last Edit by Caity Salter [facility] on 11/15/24 11:36 UA Glucose 0 mg/dL [facility] 11/15/[facility] 11:36 Results Reviewed Results Reviewed: Laboratory Last Values Urine pH (Auto) 6.0 11/15/24 11:35 Specific [place] (Auto) 1.030 11/15/24 11:35 Urine Protein (Auto) 30 mg/dL 11/15/24 11:35 Glucose (UA)(Auto) 0 mg/dL 11/15/24 11:35 Urine Ketones (Auto) Positive 11/15/24 11:35 Urine Blood (Auto) 0 Neil/uL 11/15/24 11:35 Urine Nitrite (Auto) Negative 11/15/24 11:35 Urine Bilirubin (Auto) 0 mg/dL 11/15/24 11:35 Urine Urobilinogen (Auto) 0.2 mg/dL 11/15/24 11:35 Leukocyte Esterase (Auto) 0 Kamini/uL 11/15/24 11:35 Assessment & Plan Assessment & Plan (1) Low testosterone: Code(s): R79.89 - Other specified abnormal findings of blood chemistry Category: Medical (2) Erectile dysfunction: Code(s): N52.9 - Male erectile dysfunction, unspecified Category: Medical (3) Methadone use: Code(s): F11.90 - Opioid use, unspecified, uncomplicated Category: Medical (4) Nicotine dependence: Code(s): F17.200 - Nicotine dependence, unspecified, uncomplicated Category: Medical (5) Screening PSA (prostate specific antigen): Code(s): Z12.5 - Encounter for screening for malignant neoplasm of prostate Category: Medical Plan Cialis 5mg daily PSA and testos in 3 months Orders: Orders AMB Urinalysis Automated Today Z13.9 - Encounter for screening, unspecified PSA,Total (Free>4and<10) 2 Months Z12.5 - Encounter for screening for malignant neoplasm of prostate Testosterone, Free/Total 2 Months R79.89 - Other specified abnormal findings of blood chemistry Patient Instructions: The patient had an opportunity to ask questions regarding treatment plan. The patient expressed understanding and agreement with the above treatment plan. The patient is aware they should contact our office by phone for worsening of their current condition or the appearance of new symptoms. Compliance is encouraged with any medications and followup testing that is ordered. It is a privilege to be allowed the opportunity to participate in the urologic care of your patient. If you have any questions or concerns regarding treatment for the above conditions please do not hesitate to contact me. The office telep beth contact is [phone]. This note is constructed in part using voice recognition software. While every effort has been made to ensure accuracy traffic investigator errors may have been included. Yours sincerely, Elaine Neri MD Coding Diagnoses Low testosterone R79.89 Erectile dysfunction N52.9 Methadone use F11.90 Nicotine dependence F17.200 Screening PSA (prostate specific antigen) Z12.5 IIEF-5 Questionnaire IIEF-5 How do you rate your confidence that you could get and keep an erection?: 1-Very Low When you had erections with sexual stimulation, how often were your erections hard enough for penetration?: Almost never/never During sexual intercourse, how often were you able to maintain your erection after your had penetrated(entered) your partner?: Almost never/never During sexual intercourse, how difficult was it to maintain your erection to completion of intercourse?: Extremely Difficult When you attempted sexual intercourse, how often was it satisfactory for you?: Almost never/never IIEF-5 Score IIEF-5 Score: 5
== END 2024-11-15 12:07 | disposition home or self-care (01) ==
PROVIDERS: PCP Internal Medicine; Visit Provider Urology
DX: Z13.9 Encounter for screening, unspecified (principal)

== ENCOUNTER → 2024-11-15 11:11 | Outpatient (BNVA) | payer OTHER, SELFPAY | PROVIDERS: PCP Internal Medicine; Visit Provider Urology | DX: Z12.5 Encounter for screening for malignant neoplasm of prostate (principal); R79.89 Other specified abnormal findings of blood chemistry; F11.90 Opioid use, unspecified, uncomplicated; N52.9 Male erectile dysfunction, unspecified; F17.210 Nicotine dependence, cigarettes, uncomplicated | CPT/HCPCS: 81003; 99202 ==

== ENCOUNTER 2025-02-26 10:17 | Outpatient (REF) | payer OTHER, SELFPAY ==
[2025-02-26 12:34] LABS: Alanine Aminotransferase 58 U/L (0-40); Albumin Level 4.3 g/dL (3.5-5.0); Alkaline Phosphatase 54 U/L (39-117); Anion Gap 10 (12-20); Aspartate Amino Transferase 40 U/L (5-37); Bilirubin Total 0.3 mg/dL (0.0-1.0); Blood Urea Nitrogen 15 mg/dL (9-16); Calcium 9.4 mg/dL (8.4-10.2); Carbon Dioxide 31 mmol/L (22-29); Chloride 102 mmol/L (96-108); Cholesterol 166 mg/dL (<200); Estimated Glomerular Filt Rate > 60; Glucose Fasting 111 mg/dL (60-99); HDL Cholesterol 47 mg/dL (>40); LDL Cholesterol Calculated 107 mg/dL (<100); Potassium 3.9 mmol/L (3.3-5.1); Sodium 139 mmol/L (135-145); Total Protein 8.1 g/dL (6.5-8.0); Triglycerides 62 mg/dL (<150)
[2025-02-26 12:53] LABS: PSA,Total (Free>4and<10) 1.09 ng/mL (0.00-4.00)
--- OUTSIDE RECORDS SUMMARY | 2025-02-26 13:28 | XMS_ITS | Clinical Summary ---
Author Organization [facility] Address [address] [place] [address] Care Team Providers Care Major League Baseball Umpire Name Role Phone Olmanpriyanka Seferino AGUILERA Primary Care Provider [phone] Source Comments PLEASE NOTE, if this patient is a minor, it may be UNLAWFUL to discuss sensitive information that is contained in these records (such as FAMILY PLANNING, MENTAL HEALTH or SUBSTANCE ABUSE) with the minor patient's parent or other person without the patient's specific authorization.[facility] Allergies No known active allergies Medications fluticasone (FLONASE) 50 mcg/actuation nasal spray Place 1 [place] in both nostrils once daily 16 g [...] Plan of Treatment Not on file Insurance [facility] Member Subscriber Plan / Payer (Ef fective 2017-Present) Name:Raffaele Collin Relation to Subscriber:Self Name:COLLIN CASTORENA Payer ID:[id number] Group ID:Not on file Type:Medicaid Address: [facility] [address] [place] [address] Care Teams [employer] League Baseball Umpire Relationship Specialty Start Date End Date Seferino Pascal NP [address] [place] [phone] [facility] - General 09/13/18
--- OUTSIDE RECORDS SUMMARY | 2025-02-26 13:28 | XMS_ITS | Clinical Summary ---
Author Organization [employer] [facility] ity Address [address] [place] [address] Care Team Providers Care Dictaphone Transcriber Name Role Phone Unavailable Primary Care Provider [...]
[2025-03-04 21:53] LABS: Testosterone, Free 49.8 pg/mL (35.0-155.0); Testosterone, Total 644 ng/dL (250-1100)
== END 2025-02-26 10:18 | disposition home or self-care (01) ==
LOC: HO.LAB 10:17
PROVIDERS: PCP Internal Medicine; Visit Provider Urology
DX: Z00.01 Encounter for general adult medical examination with abnormal findings (principal); M54.9 Dorsalgia, unspecified; J43.9 Emphysema, unspecified; F32.0 Major depressive disorder, single episode, mild; F11 Opioid related disorders; E78.5 Hyperlipidemia, unspecified; R35.1 Nocturia; N52.9 Male erectile dysfunction, unspecified; F17.210 Nicotine dependence, cigarettes, uncomplicated; Z79.899 Other long term (current) drug therapy
CPT/HCPCS: 36415; 80053; 80061; 84153; 84402; 84403; 96127; 99212; 99396

== ENCOUNTER 2025-02-26 10:17 | Outpatient (AMB) | payer OTHER, SELFPAY ==
--- NOTE | 2025-02-26 10:22 | MHC.PC.OV ---
Vital Signs 02/26/25 10:24 Height 5 ft 8 in Weight 195 lb 8 oz BMI 29.7 BP 130/86 Blood Pressure Location Lt brachial Position Sitting Pulse 86 Pulse Source Pulse Oximeter Temp 96.9 F Temp Source Temporal Artery Scan Pulse Oximetry (%) 95 Oxygen Delivery Method Room Air Intake Visit Reasons: Annual Exam Code Enforcement Inspector Required: No Accompanied by: Self / Same As Patient Allergies No Known Allergies Allergy (Verified 02/26/25 10:38) Medication List - Last Reconciled 02/26/25 by Damaris Padron MD albuterol sulfate 90 mcg/actuation 2 puffs inhalation Q4-6H PRN 30 days furosemide 20 mg PO QAM pilocarpine HCl 5 mg PO TID 30 days tadalafil 5 mg PO DAILY 30 days tiotropium-olodaterol 2.5-2.5 mcg/actuation (Stiolto Respimat) 2 puffs inhalation DAILY 30 days trazodone 50 mg PO BEDTIME PRN 90 days Tobacco use date assessed: 02/26/25 Dental Screening Dental Screen Date: 02/26/25 Did you have a dental visit in the last 12 months?: No Did you have a dental problem in the last 6 months where you did not have access to dental care?: No Was dental information given to patient?: No HPI HPI Comments History of Present Illness Details The patient is a 50-year-old male presenting for an annual physical examination and health maintenance. He reports his last tetanus vaccination was over ten years ago and considers receiving a booster. He is diagnosed with emphysema, managed with an inhaler, and has a scheduled follow-up with his air export coordinator. Chronic venous insufficiency leads to leg edema, requiring furosemide, which needs a refill. Erectile dysfunction persists, requiring medication, and insomnia coexists with moderate depression, as indicated by a PHQ-9 score of 14, for which trazodone is used. Complains of right costovertebral angle tenderness. Will be referred for colonoscopy. He has mild major depression stable with trazodone. He has opiate dependence with history of heroin use well controlled with methadone. Urinary issues include retention, characterized by a weak, interrupted stream and frequent nocturia. Prior childbirth experiences noted and bowel pain post-medication is recounted. He declines current alcohol use, maintains methadone for past opioid dependence, and smokes under ten cigarettes daily. His father was diabetic, alerting him to dietary sugar concerns but has no current diabetes diagnosis. - Tetanus booster is indicated and discussed. - Follow-up with the air export coordinator for emphysema management. - Blood work planned for monitoring and assessment. - Colonoscopy referral given, as no prior screening has occurred. - Lifestyle interventions include dietary advice to mitigate high sugar intake. [facility] Medical History (Updated 02/26/25 @ 11:00 by Damaris Padron MD) COPD (chronic obstructive pulmonary disease) Nicotine dependence, cigarettes, uncomplicated Pleural effusion, right (~10/2020) Heroin use Surgical History History of tooth extraction Family History Mother No problems noted. Father Diabetes Social History (Updated 02/26/25 @ 10:46 by Damaris Padron MD) Housing: Apartment Alcohol intake: former Patient Tobacco Use Status: Current everyday Tobacco user Tobacco use type: Cigarette Cigarette Packs Per Day: 0.5 Cigarettes Per Day: 7 Years Smoked: onset 11yo, 1ppd x 37yrs, now 1/2ppd - 35pyh e-Cigarette/Vaping Use: Never Used Second Hand Smoke Exposure: No service: No Current occupational status: unemployed Cognitive needs: No Hearing needs: No Vision needs: Yes Questionnaire PHQ-9 Over the last 2 weeks, how often have you been bothered by any of the following problems? 1. Little interest or pleasure in doing things: nearly every day 2. Feeling down, depressed, or hopeless: several days 3. Trouble falling or staying asleep, or sleeping too much: nearly every day 4. Feeling tired or having little energy: nearly every day 5. Poor appetite or overeating: not at all 6. Feeling bad about yourself - or that you are a failure or have let yourself or your family down: not at all 7. Trouble concentrating on things, such as reading the newspaper or watching television: several days 8. Moving or speaking so slowly that other people could have noticed. Or the opposite - being so fidgety or restless that you have been moving around a lot more than usual: nearly every day 9. Thoughts that you would be better off or of hurting yourself in some way: not at all Total score: 14 Depression Screening Interpretation: Positive Depression Screening Follow-up: Existing condition, In treatment and Follow-up Visit Requested Depression Screening Done: Yes 61013 - PHQ-9 Billing: Yes Source: Developed by Drs. Sal Mccormack, Easton Alonso and colleagues, with an educational alexi from [employer]. Thrive Questionnaire Date Thrive assessed: 02/26/25 I am a: Patient What is your living situation today?: I have a steady place to live Within the past 12 months, did the food you bought not last and you didn't have the money to get more?: Never true Within the past 12 months, did you worry whether your food would run out before you got money to buy more?: Never true Do you have trouble paying for medicines?: No Do you have trouble getting transportation to medical appointments?: No Do you have trouble paying your heating and electricity bill?: No Do you have trouble taking care of your child, family member or friend?: No Do you have trouble with day-to-day activities such as bathing, preparing meals, shopping, managing finances, etc.?: No Are you currently unemployed and looking for a job?: No Are you interested in more education?: No Please select the resources that you would like help with: None Currently or been in a relationship where the following occur: No concerns reported THRIVE Score: 0 SAADIA-7 AMB Questionnaire SAADIA-7 Date SAADIA - 7 assessed: 02/26/25 Feeling nervous, anxious, or on edge: 0 = Not at all Not being able to stop or control worryin = Not at all Worrying too much about different things: 0 = Not at all Trouble relaxin = Not at all Being so restless that it is hard to sit still: 0 = Not at all Becoming easily annoyed or irritable: 0 = Not at all Feeling afraid as if something awful might happen: 0 = Not at all Total SAADIA-7 score (0-4 normal; 5-9 mild; 10-14 moderate; 15-21 severe): 0 Source: Developed by Drs. Sal Mccormack, Easton Alonso and colleagues, with an educational alexi from [employer]. SAADIA-7 Assessment Billing SAADIA-7 Assessment Tool: SAADIA-7 Assessment 35930 Review of Systems Const All systems reviewed & are unremarkable except as noted in HPI and below Card Denies chest pain at rest, Denies chest pain with activity, Denies edema, Denies irregular heart rhythm, Denies claudication, Denies dyspnea, Denies dyspnea on exertion, Denies orthopnea, Denies paroxysmal nocturnal dyspnea and Denies slow heart rate Resp Denies cough, Denies dyspnea and Denies dyspnea on exertion GI Denies abdominal pain, Denies change in bowel habits, Denies excessive flatus, Denies nausea and Denies vomiting Denies urinary hesitancy, Denies urinary incontinence and Denies urinary urgency Musc Denies abnormal gait, Denies atrophy, Denies deformity and Denies limited range of motion Skin/Breast Denies bleeding lesions, Denies changing lesions and Denies rash Neuro Denies abnormal gait and Denies lack of coordination Physical exam (Primary Care) Vital Signs: Last Vital Signs Temp 96.9 F 02/26/25 10:24 Pulse 86 02/26/25 10:24 BP 130/86 02/26/25 10:24 Pulse Ox 95 02/26/25 10:24 Oxygen Delivery Method Room Air 02/26/25 10:24 BMI result Body Mass Index 29.7 Tobacco/Smoking Status: Tobacco use Status Tobacco use date assessed 02/26/25 02/26/25 10:29 Patient Tobacco Use Status Current everyday Tobacco 02/26/25 10:29 Tobacco use type Cigarette 02/26/25 10:29 e-Cigarette/Vaping Use Never Used 02/26/25 10:29 Are you ready to quit: No Tobacco cessation counseling provided: Yes Items discussed: Nicotine replacement Relapse Prevention: discussed the importance of a supportive environment and discussed negative mood or depression after quitting Number of minutes spent counselin CPT code: Less than 3 minutes PHQ-9: PHQ-9 Score PHQ-9: Total score 14 02/26/25 10:29 Depression Screening Interpretation: Positive Depression Screening Follow-up: Existing condition, In treatment and Follow-up Visit Requested Thrive Assessment: Date of Thrive Assessment Date Thrive assessed 02/26/25 02/26/25 10:29 Currently or been in a relationship where the following occur: No concerns reported HENMT Head: Yes normal to inspection, Yes normocephalic and Yes atraumatic Ears: external ears normal Eyes General: appearance normal, both eyes and all related structures Eyelids: Yes eyelids normal Conjunctivae: conjunctivae normal Neck Neck: Yes normal visual inspection and Yes supple Resp Effort & Inspection: normal respiratory effort Auscultation: clear to auscultation bilaterally Cardio Jugular venous distension: no JVD Rate: regular rate Rhythm: regular rhythm Heart sounds: S1 normal heart sound present and S2 normal heart sound present GI Inspection: Yes normal to inspection Palpation (GI): Soft to palpation and nontender Auscultation: normal bowel sounds Skin General skin exam: no rashes or lesions noted Neuro General: no focal motor deficits Extrem General: Yes full ROM Psych Appearance: grossly normal Coding Level of Care Code Est Pt Level 3 (32976) Est Pt Prev Care 40-64y(08087) Diagnoses Physical exam Z00.00 Costovertebral angle tenderness M54.9 Pulmonary emphysema J43.9 Mild major depression F32.0 Opioid dependence with opioid-induced sexual dysfunction F11.281 Substance use status: with opioid-induced sexual dysfunction Additional Codes SAADIA-7 Assessment Billing - SAADIA-7 Assessment Tool: SAADIA-7 Assessment 25293 ([id number]) PHQ-9 - 09939 - PHQ-9 Billing: Yes ([id number]) Time Spent (min) 33 Assessment & Plan Assessment & Plan (1) Physical exam: Code(s): Z00.00 - Encounter for general adult medical examination without abnormal findings Category: Medical (2) Costovertebral angle tenderness: Code(s): M54.9 - Dorsalgia, unspecified Category: Medical (3) Pulmonary emphysema: Code(s): J43.9 - Emphysema, unspecified Category: Medical (4) Mild major depression: Code(s): F32.0 - Major depressive disorder, single episode, mild Category: Medical (5) Opiate dependence: Code(s): F11.20 - Opioid dependence, uncomplicated Category: Medical Qualifiers: Substance use status: with opioid-induced sexual dysfunction Qualified Code(s): F11.281 - Opioid dependence with opioid-induced sexual dysfunction Plan During the visit, we discussed tetanus immunization given the elapsed time since last administration, and leg edema was managed with a furosemide refill. Emphysema is controlled with inhalers and air export coordinator assessments. Medications for erectile dysfunction and insomnia, associated with depression, are refilled. For urinary retention, a urologic assessment recommendation is considered. Methadone support reaffirms opioid cessation. Smoking cessation remains emphasized, alongside dietary adjustments for better nutrition. Upcoming investigations encompass blood tests and a colonoscopy referral. We encourage lifestyle modification through correct dietary choices, especially in sugar management. Patient was informed and verbally consented to the use of an ambient scribe for clinic note documentation during this visit. I explained the need for a tetanus booster since it has been over ten years since his last vaccination. We reviewed the importance of continuing furosemide for his leg edema. I provided refills for medications addressing erectile dysfunction and depression-related insomnia. Together, we recognized the positive effects of addressing urinary retention and discussed appropriate next steps. Continuation on methadone for opioid disorder was reaffirmed, while discussing the benefits of reducing cigarette consumption and monitoring dietary intake to reduce sugar consumption. We covered routine blood work and the necessity of a colonoscopy as preventive health measures. The patient plans to follow-up for further health maintenance reviews. Orders: Orders Lipid Panel Today E78.5 - Hyperlipidemia, unspecified Comprehensive [place]. Panel Fast Today J44.9 - Chronic obstructive pulmonary disease, unspecified PSA,Total (Free>4and<10) Today R35.1 - Nocturia XR KUB Today M54.9 - Dorsalgia, unspecified Testosterone, Free/Total Today N52.9 - Male erectile dysfunction, unspecified Referrals Open Access Screening Colonoscopy Referral Z12.12 - Encounter for screening for malignant neoplasm of rectum Medications: Refilled furosemide 20 mg PO QAM 30 tabs 2RF tadalafil PLEASE USE COUPON ATTACHED NOT INSURANCE 19.32 BIN N Group [id number] [id number] 5 mg PO DAILY 30 days 30 tabs 4RF trazodone Take 1 to 2 tablets as needed. 50 mg PO BEDTIME 90 days PRN 90 tabs 3RF sleep Discontinued pilocarpine HCl Discontinued Reason: Patient Completed Course 5 mg PO TID 30 days 90 tabs 0RF Patient Instructions: - Consider receiving a tetanus booster but decline it. - Refill and take furosemide as prescribed for leg swelling. - Use prescribed inhalers daily for emphysema. - Continue current medication for erectile dysfunction. - Refill trazodone for insomnia with depression. - Follow any next steps recommended for urinary retention. - Encourage cessation of cigarette smoking. - Follow a balanced diet, watching sugar intake. - Plan for a blood test. - Schedule a colonoscopy. - Follow-up with air export coordinator as scheduled.
[2025-02-26 10:24] VITALS: BP 130/86; PULSE 86; TEMP 36.1; O2SAT 95; BMI 29.7
--- OUTSIDE RECORDS SUMMARY | 2025-02-26 12:00 | XMS_ITS | Clinical Summary ---
Author Organization [facility] Address [address] [place] [address] Care Team Providers Care Publications Distribution Clerk Name Role Phone Olmanpriyanka Seferino AGUILERA Primary Care Provider [phone] Source Comments PLEASE NOTE, if this patient is a minor, it may be UNLAWFUL to discuss sensitive information that is contained in these records (such as FAMILY PLANNING, MENTAL HEALTH or SUBSTANCE ABUSE) with the minor patient's parent or other person without the patient's specific authorization.[facility] Allergies No known active allergies Medications fluticasone (FLONASE) 50 mcg/actuation nasal spray Place 1 [place] in both nostrils once daily 16 g 2 7 Active loratadine (CLARITIN) 10 mg tabletIndicatio ns:Hx of seasonal allergies Take 1 Tab by mouth once daily as needed for allergies 30 Tab 3 7 Active nicotine (NICORETTE) 2 mg gumIndications: Smoking Take 1 Each by mouth as needed for smoking cessation Do not eat or drink for 15 minutes before or while chewing gum. 100 Each 1 7 Active Active Problems Problem Noted Date Diagnosed Date Hx of seasonal allergies 08/09/2017 Smoking 08/09/2017 Lump of breast, right 08/09/2017 Immunizations Immunization Administration Dates Next Due Flu, Preservative Free 08/09/2017 Family History Medical History Relation Name Comments Diabetes Father Diabetes Paternal Grandmother Relation Name Status Comments Father Alive Mother Alive Paternal Grandmother Alive Social History Tobacco Use Types Packs/Day Years Used Date Smoking Tobacco: Every Day Cigarettes 0.5 25 Smokeless Tobacco: Current Tobacco Cessation:Ready to Q uit: Yes; Counseling Given: Yes Alcohol Use Standard Drinks/Week Comments No 0 (1 standard drink = 0.6 oz pur e alcohol) Social Connections Answer Date Recorded Social Connections and Isolation 0 06/30/2019 Financial Resource Strain Answer Date R ecorded Financial Resource Strain 0 2018 Stress Answer Date Recorded Stress 0 06/30/2019 Physical Activity Answer Date Recorded Physical Activity 0 06/30/2019 Food Insecurity Answer Date Recorded Food 0 06/30/2019 Transportation Needs Answer Date Record ed Transportation 0 06/30/2019 Housing Stability Answer Date Recorded Housing 0 06/30/2019 Safety and Environment Answer Date [place] rded Safety 0 06/30/2019 Utilities Answer Date Recorded Utilities 0 06/30/2019 Employment Answer Date Recorded Employment 0 06/30/2019 Sex and Gender Information Value Date Recorded Sex Assigned at Not on file Legal Sex Male 9:56 AM PDT Gender Identity Not on file Sexual Orientation Not on file Last Filed Vital Signs Vital Sign Reading Time Taken Comments Blood Pressure 112/92 08/09/2017 10:29 AM EDT Pulse 90 08/09/2017 10:29 AM EDT Temperature 36.8 ??C (98.2 ??F) 08/09/2017 10:29 AM E DT Respiratory Rate 18 08/09/2017 10:29 AM EDT Oxygen Saturation 95% 07/26/2017 1:59 PM EDT Inhaled Oxygen Concentration - - Weight 98.4 kg (217 lb) 08/09/2017 10:29 AM EDT Height 172.7 cm (5' 8 ) 08/09/2017 10:29 AM EDT Body Mass Index 32.99 08/09/2017 10:29 AM EDT Plan of Treatment Not on file Insurance [facility] Member Subscriber Plan / Payer (Ef fective 2017-Present) Name:Raffaele Collin Relation to Subscriber:Self Name:COLLIN CASTORENA Payer ID:[id number] Group ID:Not on file Type:Medicaid Address: [facility] [address] [place] [address] Care Teams Publications Distribution Clerk Relationship Specialty Start Date End Date Seferino Pascal NP [address] [place] [id number] [facility] - General 09/13/18
--- OUTSIDE RECORDS SUMMARY | 2025-02-26 12:00 | XMS_ITS | Clinical Summary ---
Author Organization [facility] ity Address [address] [place] [address] Care Team Providers Care Business Process Expert Name Role Phone Unavailable Primary Care Provider Unavailabl e Social History Tobacco Use Types Packs/Day Years Used Date Smoking Tobacco: Never Assessed Sex and Gender Information Value Date Recorded Sex Assigned at Not on file Legal Sex Male 10:48 PM EST Gender Identity Not on file Sexual Orientation Not on file Plan of Treatment Health Maintenance Due Date Last Done Comments DTaP,Tdap,and Td Vaccines (1 - Tdap) 02/15/1992 Hepatitis B Vaccines (1 of 3 - 19+ 3-dose series) 02/15/1992 Cholesterol Screening (Lipid Panel) 10/09/2022 Colorectal Cancer Screening: Colonoscopy 10/09/2022 Depression Screening 10/09/2022 HIV Screening 10/09/2022 Hepatitis C Screening 10/09/2022 Social Influencers of Health Screening 10/09/2022 Pneumococcal Vaccine: 50+ Ye ars (1 of 1 - PCV) 2023 Zoster Vaccines (1 of 2) 2023 COVID-19 Vaccine (1 - 2023-2 5 season) 2024 Influenza Vaccine (Season Ended) 2025 HIB Vaccines Aged Out No longer eligi ble based on patient's age to complete this topic HPV Vaccines Aged Out No longer eligi ble based on patient's age to complete this topic Hepatitis A Vaccines Aged Out No long er eligible based on patient's age to complete this topic IPV Vaccines Aged Out No longer eligi ble based on patient's age to complete this topic MMR Vaccines Aged Out No longer eligi ble based on patient's age to complete this topic Meningococcal ACWY Vaccine Aged Out N o longer eligible based on patient's age to complete this topic Meningococcal B Vaccine Aged Out No l onger eligible based on patient's age to complete this topic Pneumococcal Vaccine: Pediat rics (0 to 5 Years) and At-Risk Patients (6 to 64 Years) Aged Out No longer eligible b ased on patient's age to complete this topic RSV Immunization Patients Un michelle 20 months Aged Out No longer eligible b ased on patient's age to complete this topic Varicella Vaccines Aged Out No longer eligible based on patient's age to complete this topic
== END 2025-02-26 10:55 | disposition home or self-care (01) ==
LOC: HO.HMCH 10:18
PROVIDERS: PCP Internal Medicine; Visit Provider Internal Medicine
DX: Z00.00 Encounter for general adult medical examination without abnormal findings (principal); J43.9 Emphysema, unspecified; F11 Opioid related disorders; M54.9 Dorsalgia, unspecified; F32.0 Major depressive disorder, single episode, mild

== ENCOUNTER 2025-04-18 15:05 | Outpatient (AMB) | payer OTHER, SELFPAY ==
--- OUTSIDE RECORDS SUMMARY | 2025-04-18 15:07 | XMS_ITS | Clinical Summary ---
Author Organization [employer] [facility] ity Address [address] [place] [address] Care Team Providers Care Inspector Plug Seam Name Role Phone Unavailable Primary Care Provider [...]
--- NOTE | 2025-04-18 15:31 | MHC.OFFVIS ---
Intake Visit Reasons: follow up / labs Intake Note: Patient is present for follow up/labs Labs comp. 02/26 Urology Medication:NONE Antibiotic Allergy:NONE Blood Thinner:NONE Assisted Sales Representative Required: No Allergies No Known Allergies Allergy (Verified 04/18/25 15:32) Medication List - Last Reconciled 04/18/25 by Elaine Neri MD albuterol sulfate 90 mcg/actuation 2 puffs inhalation Q4-6H PRN 30 days furosemide 20 mg PO QAM tadalafil 5 mg PO DAILY 30 days tiotropium-olodaterol 2.5-2.5 mcg/actuation (Stiolto Respimat) 2 puffs inhalation DAILY 30 days trazodone 50 mg PO BEDTIME PRN 90 days HPI Comments Details: 04/18/25-- - The patient is a 50-year-old male presenting with erectile dysfunction. - Erectile dysfunction was initially reported during a visit on November 15, 2024. - The patient was started on Cialis as a treatment. - Laboratory tests were conducted on February 26, 2025, showing a normal PSA level of 1.09. TT-644, FT-49.8 Testosterone levels are WNL and so testosterone replacement therapy is not indicated at this time. The patient left without being seen. 11/15/24--Logan is a 49 year old male who is here with complaints of changes in erections. Comorbidity-nicotine use, on methadone 140 mg daily h/o cocaine and heroine use, nicotine currently 7-10 cigarettes dailly. IIEF-5 - questionnaire score 5. Details of questionnaire below. Denies irritative or obstructive lower urinary tract symptoms. We will check testosterone level. Trial Cialis. [facility] Medical History COPD (chronic obstructive pulmonary disease) Nicotine dependence, cigarettes, uncomplicated Pleural effusion, right (~10/2020) Heroin use Surgical History History of tooth extraction Family History Mother No problems noted. Father Diabetes Social History Housing: Apartment Alcohol intake: former Patient Tobacco Use Status: Current everyday Tobacco user Tobacco use type: Cigarette Cigarette Packs Per Day: 0.5 Cigarettes Per Day: 7 Years Smoked: onset 11yo, 1ppd x 37yrs, now 1/2ppd - 35pyh e-Cigarette/Vaping Use: Never Used Second Hand Smoke Exposure: No service: No Current occupational status: unemployed Cognitive needs: No Hearing needs: No Vision needs: Yes Assessment & Plan Assessment & Plan (1) Low testosterone: Code(s): R79.89 - Other specified abnormal findings of blood chemistry Category: Medical (2) Erectile dysfunction: Code(s): N52.9 - Male erectile dysfunction, unspecified Category: Medical (3) Methadone use: Code(s): F11.90 - Opioid use, unspecified, uncomplicated Category: Medical (4) Nicotine dependence: Code(s): F17.200 - Nicotine dependence, unspecified, uncomplicated Category: Medical (5) Screening PSA (prostate specific antigen): Code(s): Z12.5 - Encounter for screening for malignant neoplasm of prostate Category: Medical Plan Consider cont Cialis. Testosterone levels are WNL and so testosterone replacement therapy is not indicated at this time. The patient left without being seen. Coding Level of Care Code Left Without Being Seen Diagnoses Low testosterone R79.89 Erectile dysfunction N52.9 Methadone use F11.90 Nicotine dependence F17.200 Screening PSA (prostate specific antigen) Z12.5
== END 2025-04-18 15:57 | disposition left against medical advice (07) ==
LOC: HO.HUSH 15:06
PROVIDERS: PCP Internal Medicine; Visit Provider Urology
DX: Z13.9 Encounter for screening, unspecified (principal)

== ENCOUNTER → 2025-04-18 15:05 | Outpatient (BNVA) | payer OTHER, SELFPAY | PROVIDERS: PCP Internal Medicine; Visit Provider Urology | DX: N52.9 Male erectile dysfunction, unspecified (principal); F11.90 Opioid use, unspecified, uncomplicated; R79.89 Other specified abnormal findings of blood chemistry; F17.200 Nicotine dependence, unspecified, uncomplicated; Z12.5 Encounter for screening for malignant neoplasm of prostate | CPT/HCPCS: 81003 ==

== ENCOUNTER 2025-05-21 14:33 | Outpatient (REF) | payer OTHER, SELFPAY ==
--- NOTE | ~2025-05-21 | XR_ITS ---
EXAMINATION: XR LUMBAR SPINE 2-3 VIEWS HISTORY: CHRONIC LOWER BACK PAIN COMPARISON: There are no prior studies for comparison. FINDINGS: AP, lateral, and coned down views of the lumbar spine are submitted. Osseous mineralization is normal. There is mild leftward curvature which may be positional in nature. Five nonrib-bearing lumbar vertebral bodies are identified, maintaining normal height without evidence of fracture or spondylolisthesis. There is mild degenerative disc disease with disc space narrowing and osteophyte formation. The posterior elements are intact. The visualized paraspinal soft tissues are unremarkable. XR/XR lumbar spine 2-3V IMPRESSION: Mild leftward curvature. Mild degenerative disc disease. Electronically signed by: Sal Soria MD 05/21/2025 03:29 PM EDT
== END 2025-05-21 14:34 | disposition home or self-care (01) ==
LOC: HO.XRAY 14:33
PROVIDERS: Absent Provider Pediatrics; PCP Internal Medicine; Visit Provider Internal Medicine Pulmonary Disease
DX: G47.33 Obstructive sleep apnea (adult) (pediatric) (principal); J43.9 Emphysema, unspecified; F17.210 Nicotine dependence, cigarettes, uncomplicated; Z79.899 Other long term (current) drug therapy; Z99.89 Dependence on other enabling machines and devices
CPT/HCPCS: 72100; 99212

== ENCOUNTER 2025-05-21 14:33 | Outpatient (AMB) | payer OTHER, SELFPAY ==
--- NOTE | 2025-05-21 14:34 | A.OFFVIS_ITS ---
Vital Signs 05/21/25 14:35 Height 5 ft 8 in Weight 194 lb BMI 29.5 BP 116/62 Blood Pressure Location Lt brachial Position Sitting Pulse 74 Pulse Source Pulse Oximeter Pulse Oximetry (%) 97 Oxygen Delivery Method Room Air Intake Visit Reasons: dysnea Allergies No Known Allergies Allergy (Verified 04/18/25 15:32) HPI HPI dysnea: Details: 50-year-old gentleman active 30 pack-year smoker now followed for pulmonary emphysema and obstructive sleep apnea. He continues on Stiolto and albuterol M DI with good control of his pulmonary symptoms. His orthopnea and lower extremity edema is controlled on Lasix 20 mg daily. He uses CPAP with good control of his sleep apnea symptoms. Patient had cardiopulmonary exercise test that showed no pulmonary limitation, but likely cardiovascular limitation to his exercise capacity. His lung cancer screening did not show worrisome pulmonary nodules in August of 2024. [facility] Medical History COPD (chronic obstructive pulmonary disease) Nicotine dependence, cigarettes, uncomplicated Pleural effusion, right (~10/2020) Heroin use Surgical History History of tooth extraction Family History Mother No problems noted. Father Diabetes Social History Housing: Apartment Alcohol intake: former Patient Tobacco Use Status: Current everyday Tobacco user Tobacco use type: Cigarette Cigarette Packs Per Day: 0.5 Cigarettes Per Day: 7 Years Smoked: onset 11yo, 1ppd x 37yrs, now 1/2ppd - 35pyh e-Cigarette/Vaping Use: Never Used Second Hand Smoke Exposure: No service: No Current occupational status: unemployed Cognitive needs: No Hearing needs: No Vision needs: Yes Review of Systems Const Denies daytime sleepiness, Denies excessive sweating, Denies fatigue, Denies fever(s), Denies lethargy, Denies malaise, Denies night sweats, Denies snoring and Denies weight loss Eyes Denies blurry vision and Denies itchy eyes ENT Denies nasal congestion, Denies post nasal drip, Denies sinus pain, Denies sinus pressure and Denies other ( Thrush) Card Denies chest pain, Denies pedal edema, Denies dyspnea, Reports dyspnea on exertion (Chronic), Denies orthopnea and Denies paroxysmal nocturnal dyspnea Resp Denies cough, Denies hemoptysis, Denies excessive phlegm production, Denies dyspnea, Reports dyspnea on exertion (Chronic), Denies snoring and Denies wheezing GI Denies abdominal pain and Denies heartburn Musc Denies myalgias, Denies arthralgias and Denies joint swelling Skin/Breast Denies rash Neuro Denies memory loss and Denies seizure-like activity Psych Denies abnormal sleep pattern, Denies anxiety and Denies memory loss Endo Denies excessive sweating, Denies fatigue and Denies heat intolerance Lake/Lymph Denies easy bruising Aller/Immun Denies itchy eyes, Denies seasonal rhinorrhea and Denies wheezing Physical Exam Vital Signs: Last Vital Signs Pulse 74 05/21/25 14:35 BP 116/62 05/21/25 14:35 Pulse Ox 97 05/21/25 14:35 Oxygen Delivery Method Room Air 05/21/25 14:35 BMI result Body Mass Index 29.5 Const General: no acute distress and alert Nutritional Appearance: not obese Orientation/consciousness: Other orientation findings ( oriented) HEENT Head: Yes atraumatic Eyes General: appearance normal, both eyes and all related structures Sclerae: sclerae normal EOM: EOMs intact bilaterally Neck Neck: Yes supple Lymphatic: no lymphadenopathy noted Resp Effort & Inspection: normal respiratory effort and no use of accessory muscles Auscultation: clear to auscultation bilaterally Cardio Rate: regular rate Rhythm: regular rhythm Heart sounds: no gallops, no murmurs and no rubs Skin General skin exam: other ( warm) Extrem General: No clubbing, No cyanosis and No edema Assessment & Plan Assessment & Plan (1) Pulmonary emphysema: Code(s): J43.9 - Emphysema, unspecified Category: Medical Plan: Well controlled on current regimen of Stiolto and albuterol MDI. Continue current regimen. (2) ROBERT (obstructive sleep apnea): Code(s): G47.33 - Obstructive sleep apnea (adult) (pediatric) Category: Medical Plan: Well controlled on current CPAP therapy. Continue CPAP therapy. (3) Nicotine dependence, cigarettes, uncomplicated: Comment: (current smoker - onset 11yo, 1ppd x 37yrs, now 1/2ppd - 35pyh) Code(s): F17.210 - Nicotine dependence, cigarettes, uncomplicated Category: Medical Plan: Results of lung cancer screening CT chest August of 2024 reviewed, no worrisome nodules. Continue with lung cancer screening, next in August of 2025. Coding Level of Care Code Est Pt Level 4 (74704) Complex EM visit Add On G2211 Diagnoses Pulmonary emphysema J43.9 ROBERT (obstructive sleep apnea) G47.33 Nicotine dependence, cigarettes, uncomplicated F17.210
[2025-05-21 14:35] VITALS: BP 116/62; PULSE 74; O2SAT 97; BMI 29.5
--- OUTSIDE RECORDS SUMMARY | 2025-05-21 15:13 | XMS_ITS | Clinical Summary ---
Author Organization [facility] ity Address [address] [place] [address] Care Team Providers Care Manager Oracle Database Name Role Phone Unavailable Primary Care Provider [...] - 2023-2 5 season) 2024 Influenza Vaccine (#1) 2025 HIB Vaccines Aged Out No longer [...] 5 Years) and At-Risk Patients (6 to 49 Years) Aged Out No longer eligible b ased on patient's age to complete this topic RSV Immunization Patients Un michelle 20 months Aged Out No longer eligible b ased on patient's age to complete this topic Varicella Vaccines Aged Out No longer eligible based on patient's age to complete this topic
--- OUTSIDE RECORDS SUMMARY | 2025-05-21 15:13 | XMS_ITS | Clinical Summary ---
Author Organization [facility] Address [address] [place] [address] Care Team Providers Care Carving Machine Operator Name Role Phone Olmanpriyanka Seferino AGUILERA Primary Care Provider [phone] Source Comments PLEASE NOTE, if this patient is a minor, it may be UNLAWFUL to discuss sensitive information that is contained in these records (such as FAMILY PLANNING, MENTAL HEALTH or SUBSTANCE ABUSE) with the minor patient's parent or other person without the patient's specific authorization.[facility] Allergies No known active allergies Medications fluticasone (FLONASE) 50 mcg/actuation nasal spray Place 1 [place] in both nostrils once daily 16 g [...] 90 08/09/2017 10:29 AM EDT Temperature 36.8 C (98.2 F) 08/09/2017 10:29 AM EDT Respiratory Rate 18 08/09/2017 10:29 AM EDT Oxygen Saturation 95% 07/26/2017 1:59 PM EDT Inhaled Oxygen Concentration - - Weight 98.4 kg (217 lb) 08/09/2017 10:29 AM EDT Height 172.7 cm (5' 8 ) 08/09/2017 10:29 AM EDT Body Mass Index 32.99 08/09/2017 10:29 AM EDT Plan of Treatment Not on file Insurance [facility] [employer] Member Subscriber Plan / Payer (Ef fective 2017-Present) Name:Collin Castorena Relation to Subscriber:Self Name:COLLIN CASTORENA Payer ID:[id number] Group ID:Not on file Type:Medicaid Address: [facility] [address] [place] [address] Care Teams Carving Machine Operator Relationship Specialty Start Date End Date Seferino Pascal NP [address] [place] [address] PCP - General 11/8/18
== END 2025-05-21 14:49 | disposition home or self-care (01) ==
LOC: HO.HPS 14:33
PROVIDERS: PCP Internal Medicine; Visit Provider Internal Medicine Pulmonary Disease
DX: J43.9 Emphysema, unspecified (principal); G47.33 Obstructive sleep apnea (adult) (pediatric); F17.210 Nicotine dependence, cigarettes, uncomplicated
CPT/HCPCS: 99214; G2211

== ENCOUNTER → 2025-05-21 15:07 | Outpatient (BNV) | payer OTHER, SELFPAY | PROVIDERS: Absent Provider Pediatrics; PCP Internal Medicine; Visit Provider Radiology Diagnostic Radiology | DX: M54.50 Low back pain, unspecified (principal) | CPT/HCPCS: 72100 ==

== ENCOUNTER 2025-05-29 11:19 | Outpatient (AMB) | payer OTHER, SELFPAY ==
--- NOTE | 2025-05-29 11:42 | A.OFFVIS_ITS ---
Intake Visit Reasons: Lab Follow Up- previous Dr. Ruffin pt(set) Intake Note: Patient is present for LAB F/U Urology Medication:TADALAFIL Antibiotic Allergy:NONE Blood Thinner:NONE Wastewater Process Engineer Required: No Allergies No Known Allergies Allergy (Verified 05/29/25 12:08) Medication List - Last Reconciled 05/29/25 by MERISSA AndreaP- albuterol sulfate 90 mcg/actuation 2 puffs inhalation Q4-6H PRN 30 days furosemide 20 mg PO QAM sennosides (senna) 8.6 mg PO BEDTIME PRN 90 days tadalafil 5 mg PO DAILY 30 days tiotropium-olodaterol 2.5-2.5 mcg/actuation (Stiolto Respimat) 2 puffs inhalation DAILY 30 days trazodone 50 mg PO BEDTIME PRN 90 days HPI Comments Details: Logan is a 50-year-old male patient of Dr. Fine. He has a PMH of COPD, Nicotine dependance, and Heroin use. He is being followed up on today via telehealth for his erectile dysfunction. In discussion with the patient today he reports having previously follow-up with Dr. Thanh Ruffin and recommendations were made for low-dose Cialis however upon retrieval of the medication at the pharmacy he was told it was 400 dollars. He continues to report issues with ED. He does report he is able to obtain an erection however feels maintaining erections are difficult. He otherwise denies any bothersome urinary issues. He denies urinary urgency, urinary frequency, incontinence, nocturia, hematuria, dysuria, foul smelling urine, changes to urinary stream, flank pain, fever, and or chills. He is happy with his current voiding parameters. We did discussed potential causes of ED as well as further treatment options and risks and benefits of these treatment options. In review of patient's chart it appears labs have been ordered and performed. These results were reviewed and communicated with the patient today. PSA: 07/29 0.5, 02/28 1.1 Testosterone: 03/29 476, 10/29 390, 02/28 644 Free testosteroneL 03/29 35.7, 10/29 TNP, 02/28 49.8 When asked he does report nicotine dependence. He reports smoking approximately half a pack per day. We did discussed lifestyle modifications to assist with ED as well as overall health and well-being. All questions were answered. He otherwise offers no other issues or concerns at this time. [facility] Medical History COPD (chronic obstructive pulmonary disease) Nicotine dependence, cigarettes, uncomplicated Pleural effusion, right (~10/2020) Heroin use Surgical History History of tooth extraction Family History Mother No problems noted. Father Diabetes Social History Housing: Apartment Alcohol intake: former Patient Tobacco Use Status: Current everyday Tobacco user Tobacco use type: Cigarette Cigarette Packs Per Day: 0.5 Cigarettes Per Day: 7 Years Smoked: onset 11yo, 1ppd x 37yrs, now 1/2ppd - 35pyh e-Cigarette/Vaping Use: Never Used Second Hand Smoke Exposure: No service: No Current occupational status: unemployed Cognitive needs: No Hearing needs: No Vision needs: Yes Review of Systems Const All systems reviewed & are unremarkable except as noted in HPI and below Physical Exam Const General: cooperative Orientation/consciousness: patient oriented x3 Resp Effort & Inspection: able to speak in complete sentences Neuro General: patient oriented x3 Psych Speech and movement: Clear speech present Attitude: cooperative Insight: Fair insight present (Psych) Judgement: Fair judgement present (Psych) Telehealth Telehealth Telehealth Platform: [facility] Location of provider rendering services: practice address Location of patient: address on file Patient Identification confirmed using: Name, : Yes Telehealth method: voice only Patient verbally consented to treatment: Yes Patient verbally consented to billing insurance company: Yes Patient informed of any privacy concerns related to visit: Yes Minutes spent on Phone/Video with Pt.: 15 Assessment & Plan Assessment & Plan (1) Erectile dysfunction: Code(s): N52.9 - Male erectile dysfunction, unspecified Category: Medical Plan Previous labs were reviewed with the patient today; as noted above. We did discussed potential causes of ED as well as further treatment options and risks and benefits of these treatment options. We discussed lifestyle modifications to assist with ED as well as overall health and well-being. All questions were answered. Start Cialis 5 mg daily as discussed and prescribed. He denies any bothersome urinary issues or concerns. He reports be happy with current voiding parameters. Follow-up in 3 months; or sooner with any issues, concerns, and or questions. Medications: New tadalafil (Cialis) [id number] [facility] GroupGDRX Member [id number] 5 mg PO DAILY 90 tabs 0RF sexual activity 90 days Discontinued tadalafil PLEASE USE COUPON ATTACHED NOT INSURANCE 19.32 BIN N Group [facility] [id number] Discontinued Reason: Doctor's Order 5 mg PO DAILY 30 days 30 tabs 4RF Patient Instructions: The patient had an opportunity to ask questions regarding the treatment plan. All questions were answered. Physical exam, labs, and imaging were discussed and reviewed in detail. As well as risks, benefits, and discussion of treatment choices. No major barriers to understanding were identified. The patient expressed understanding and agreement with the above treatment plan. The patient was made aware they should contact our office by phone for worsening of their current condition, the appearance of new symptoms, or with any questions or concerns. Compliance is encouraged with any medications and follow up testing that is ordered. It is a privilege to be allowed the opportunity to participate in? your urological care.? Again, if you have any questions or concerns If you have any questions or concerns please do not hesitate to contact me. The office is [phone]. This note is constructed using voice recognition software. While every effort has been made to ensure accuracy professor/nurse anesthetist errors may have been included. Yours sincerely, LAKISHA Andrea Coding Level of Care Code Tele Est Pt Level 3 (38156) Diagnoses Erectile dysfunction N52.9
--- OUTSIDE RECORDS SUMMARY | 2025-05-29 12:15 | XMS_ITS | Clinical Summary ---
Author Organization [facility] ity Address [address] [place] [address] Care Team Providers Care Night Warehouse Manager Name Role Phone Unavailable Primary Care Provider [...] Panel) 10/09/2022 Colorectal Cancer Screening: Colonoscopy 10/09/2022 HIV Screening 10/09/2022 Hepatitis C Screening 10/09/2022 Social Influencers of Health Screening 10/09/2022 Pneumococcal Vaccine: 50+ Ye ars (1 of 1 - PCV) 2023 Zoster Vaccines (1 of 2) 2023 COVID-19 Vaccine (1 - 2023-2 5 season) 2024 Depression Screening 11/06/2024 Influenza Vaccine (#1) 2025 HIB Vaccines Aged [...]
--- OUTSIDE RECORDS SUMMARY | 2025-05-29 12:15 | XMS_ITS | Clinical Summary ---
Author Organization [facility] Address [address] [place] [address] Care Team Providers Care Furnace Charging Machine Operator Name Role Phone Olmanpriyanka Seferino AGUILERA Primary Care Provider [phone] Source Comments PLEASE NOTE, if this patient is a minor, it may be UNLAWFUL to discuss sensitive information that is contained in these records (such as FAMILY PLANNING, MENTAL HEALTH or SUBSTANCE ABUSE) with the minor patient's parent or other person without the patient's specific authorization.[facility] Allergies No known active allergies Medications fluticasone (FLONASE) 50 mcg/actuation nasal spray Place 1 [place] in both nostrils once daily 16 g [...] Plan of Treatment Not on file Insurance [facility] [employer] Member Subscriber Plan / Payer (Ef fective 2017-Present) Name:Collin Castorena Relation to Subscriber:Self Name:COLLIN CASTORENA Payer ID:[id number] Group ID:Not on file Type:Medicaid Address: [facility] [address] [place] [address] Care Teams Furnace Charging Machine Operator Relationship Specialty Start Date End Date Seferino Pascal NP [address] [place] [address] PCP - General 11/8/18
== END 2025-05-29 14:02 | disposition home or self-care (01) ==
LOC: HO.HUSH 11:19
PROVIDERS: PCP Internal Medicine; Visit Provider Nurse Practitioner Family
DX: N52.9 Male erectile dysfunction, unspecified (principal)
CPT/HCPCS: 98005

== ENCOUNTER 2025-08-27 15:40 | Outpatient (AMB) | payer OTHER, SELFPAY ==
--- NOTE | 2025-08-27 15:40 | MHC.OFFVIS ---
Intake Visit Reasons: 3 month follow up Intake Note: Patient is present for 3M F/U Urology Medication:TADALAFIL Antibiotic Allergy:NONE Blood Thinner:NONE Watch Supervisor Required: No Allergies No Known Allergies Allergy (Verified 08/27/25 15:53) Medication List - Last Reconciled 08/27/25 by LAKISHA Andrea albuterol sulfate 90 mcg/actuation 2 puffs inhalation Q4-6H PRN 30 days furosemide 20 mg PO QAM sennosides (senna) 8.6 mg PO BEDTIME PRN 90 days tadalafil (Cialis) 5 mg PO DAILY 90 days tiotropium-olodaterol 2.5-2.5 mcg/actuation (Stiolto Respimat) 2 puffs inhalation DAILY 30 days trazodone 50 mg PO BEDTIME PRN 90 days HPI Comments Details: Logan is a 50-year-old male patient of Dr. Fine. He has a PMH of COPD, Nicotine dependance, and Heroin use. He is being followed up on today via telehealth for his erectile dysfunction. In discussion with the patient today he reports significant improvement in maintaining his erections with daily dosing of tadalafil in his requesting refill. He discusses how helpful this has been. He otherwise denies any bothersome urinary issues. He denies urinary urgency, urinary frequency, incontinence, nocturia, hematuria, dysuria, foul smelling urine, changes to urinary stream, flank pain, fever, and or chills. He is happy with his current voiding parameters. We did discuss potential causes of ED as well as further treatment options and risks and benefits of these treatment options. Previous labs are as follows: PSA: 07/29 0.5, 02/28 1.1 Testosterone: 03/29 476, 10/29 390, 02/28 644 Free testosteroneL 03/29 35.7, 10/29 TNP, 02/28 49.8 When asked he does report nicotine dependence. He reports smoking approximately half a pack per day. We did discussed lifestyle modifications to assist with ED as well as overall health and well-being. All questions were answered. He otherwise offers no other issues or concerns at this time. [facility] Medical History COPD (chronic obstructive pulmonary disease) Nicotine dependence, cigarettes, uncomplicated Pleural effusion, right (~10/2020) Heroin use Surgical History History of tooth extraction Family History Mother No problems noted. Father Diabetes Social History Housing: Apartment Alcohol intake: former Patient Tobacco Use Status: Current everyday Tobacco user Tobacco use type: Cigarette Cigarette Packs Per Day: 0.5 Cigarettes Per Day: 7 Years Smoked: onset 11yo, 1ppd x 35yrs, now 1/2ppd - 35pyh e-Cigarette/Vaping Use: Never Used Second Hand Smoke Exposure: No service: No Current occupational status: unemployed Cognitive needs: No Hearing needs: No Vision needs: Yes Review of Systems Const All systems reviewed & are unremarkable except as noted in HPI and below Physical Exam Const General: cooperative Resp Effort & Inspection: able to speak in complete sentences Psych Speech and movement: Clear speech present Attitude: cooperative Thought content: Normal thought content present Insight: Fair insight present (Psych) Judgement: Fair judgement present (Psych) Telehealth Telehealth Telehealth Platform: Telephone Location of provider rendering services: practice address Location of patient: address on file Patient Identification confirmed using: Name, : Yes Telehealth method: voice only Patient verbally consented to treatment: Yes Patient verbally consented to billing insurance company: Yes Patient informed of any privacy concerns related to visit: Yes Minutes spent on Phone/Video with Pt.: 15 Assessment & Plan Assessment & Plan (1) Erectile dysfunction: Code(s): N52.9 - Male erectile dysfunction, unspecified Category: Medical Plan We did discuss potential causes of ED as well as further treatment options and risks and benefits of these treatment options. We discussed lifestyle modifications to assist with ED as well as overall health and well-being. All questions were answered. Continue Cialis 5 mg daily as discussed and prescribed; refill provided He denies any bothersome urinary issues or concerns. He reports be happy with current voiding parameters. Follow-up in 6 months with PSA; or sooner with any issues, concerns, and or questions. Orders: Orders Prostate Specific Antigen 6 Months N52.9 - Male erectile dysfunction, unspecified Medications: Refilled tadalafil (Cialis) [id number] [facility] GroupGDRX Member [id number] 5 mg PO DAILY 90 tabs 3RF sexual activity 90 days Patient Instructions: The patient had an opportunity to ask questions regarding the treatment plan. All questions were answered. Physical exam, labs, and imaging were discussed and reviewed in detail. As well as risks, benefits, and discussion of treatment choices. No major barriers to understanding were identified. The patient expressed understanding and agreement with the above treatment plan. The patient was made aware they should contact our office by phone for worsening of their current condition, the appearance of new symptoms, or with any questions or concerns. Compliance is encouraged with any medications and follow up testing that is ordered. It is a privilege to be allowed the opportunity to participate in? your urological care.? Again, if you have any questions or concerns If you have any questions or concerns please do not hesitate to contact me. The office is [phone]. This note is constructed using voice recognition software. While every effort has been made to ensure accuracy vice president lending errors may have been included. Yours sincerely, LAKISHA Andrea Coding Level of Care Code Tele Est Pt Level 3 (22077) Diagnoses Erectile dysfunction N52.9
--- OUTSIDE RECORDS SUMMARY | 2025-08-27 21:49 | XMS_ITS | Clinical Summary ---
Author Organization [facility] ity Address [address] [place] [address] Care Team Providers Care Actuarial Internship Name Role Phone Unavailable Primary Care Provider Unavailabl e Social History Tobacco Use Types Packs/Day Years Used Date Smoking Tobacco: Never Assessed Sex and Gender Information Value Date Recorded Sex Assigned at Not on file Legal Sex Male 10:48 PM EST Gender Identity Not on file Sexual Orientation Not on file Plan of Treatment Health Maintenance Due Date Last Done Comments Colorectal Cancer Screening: Colonoscopy 1973 DTaP,Tdap,and Td Vaccines (1 - Tdap) 02/15/1992 Hepatitis B Vaccines (1 of 3 - 19+ 3-dose series) 02/15/1992 Cholesterol Screening (Lipid Panel) 10/09/2022 HIV Screening 10/09/2022 Hepatitis C Screening 10/09/2022 Social Influencers of Health Screening 10/09/2022 Pneumococcal Vaccine: 50+ Ye ars (1 of 1 - PCV) 2023 Zoster Vaccines (1 of 2) 2023 Depression Screening 11/06/2024 COVID-19 Vaccine (1 - 2023-2 5 season) 2025 Influenza Vaccine (#1) 2025 RSV Immunization Adult Patie nts (1 - 1-dose 75+ series) 02/15/2048 HIB Vaccines Aged Out No longer eligi [...]
== END 2025-08-27 16:02 | disposition home or self-care (01) ==
LOC: HO.HUSH 15:40
PROVIDERS: PCP Internal Medicine; Visit Provider Nurse Practitioner Family
DX: N52.9 Male erectile dysfunction, unspecified (principal)
CPT/HCPCS: 99213

== ENCOUNTER 2025-09-15 16:39 | Outpatient (REF) | payer OTHER, SELFPAY ==
--- OUTSIDE RECORDS SUMMARY | 2025-09-15 18:04 | XMS_ITS | Clinical Summary ---
Author Organization [employer] [facility] ity Address [address] [place] [address] Care Team Providers Care Motor Vehicle Technician Name Role Phone Unavailable Primary Care Provider [...]
== END 2025-09-15 16:40 | disposition home or self-care (01) ==
LOC: HO.CT 16:39
PROVIDERS: PCP Internal Medicine; Visit Provider Physician Assistant Medical
DX: Z12.2 Encounter for screening for malignant neoplasm of respiratory organs (principal); F17.210 Nicotine dependence, cigarettes, uncomplicated
CPT/HCPCS: 71271

== ENCOUNTER → 2025-09-15 16:40 | Outpatient (BNV) | payer OTHER, SELFPAY | PROVIDERS: PCP Internal Medicine; Visit Provider Specialist | DX: Z12.2 Encounter for screening for malignant neoplasm of respiratory organs (principal); Z87.891 Personal history of nicotine dependence | CPT/HCPCS: 71271 ==

== ENCOUNTER 2025-11-04 15:00 | Outpatient (AMB) | payer OTHER, SELFPAY ==
[2025-11-04 15:11] VITALS: BP 114/78; PULSE 73; RESP 18; O2SAT 94; BMI 29.7
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
--- OUTSIDE RECORDS SUMMARY | 2025-11-04 18:33 | XMS_ITS | Clinical Summary ---
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
== END 2025-11-04 15:38 | disposition home or self-care (01) ==
LOC: HO.HMCH 15:01
PROVIDERS: PCP Internal Medicine
DX: R20.2 Paresthesia of skin (principal)

== ENCOUNTER → 2025-11-04 15:00 | Outpatient (BNVA) | payer OTHER, SELFPAY | PROVIDERS: PCP Internal Medicine | DX: R20.2 Paresthesia of skin (principal); Z13.31 Encounter for screening for depression; Z13.1 Encounter for screening for diabetes mellitus; Z87.891 Personal history of nicotine dependence | CPT/HCPCS: 99212 ==